=== PATIENT | female | born 1965 | race Caucasian/White ===

== ENCOUNTER 2021-01-30 13:23 | Inpatient (IN) | payer MEDICARE, SELFPAY ==
--- NOTE | ~2021-01-30 | US_ITS ---
EXAMINATION: US abdomen limited DATE: 01/30/2021 16:34 INDICATION: Right upper quadrant pain TECHNIQUE: Multiple grayscale and Doppler ultrasound images of the abdomen were obtained. COMPARISON: 10/18/2013 FINDINGS: The head and body of the pancreas are normal. The pancreatic tail is obscured by bowel gas. The liver is normal with normal echogenicity and echotexture. No surface nodularity. Normal hepatope florencia flow in the main portal vein. The gallbladder is normal with no abnormal wall thickening, pericho lecystic fluid or stones. The normal common bile duct measures 2 mm. There was no sonographic Coughlin sign. IMPRESSION: 1. Normal sonographic study of the gallbladder. Reviewed, dictated and finalized at location A.
--- NOTE | ~2021-01-30 | CT_ITS ---
EXAMINATION: CT abdomen pelvis w con DATE: 01/30/2021 17:11 INDICATION: Upper abdominal pain. Vomiting. TECHNIQUE: Computed tomography (CT) of the abdomen and pelvis was performed with 100 mL Omnipaque 350 intravenous contrast. Automated exposure control and iterative reconstruction technique were employe d. The dose-length product was 242.42 mGy-cm. COMPARISON: CT abdomen and pelvis 10/16/2013 FINDINGS: The visualized portions of the lung bases demonstrate mild atelectasis. No pleural effusion . The heart size is normal. No pericardial effusion. The liver, gallbladder, spleen, pancreas, adrena l glands, and left kidney are normal. There are cysts in right kidney measuring up to 7 mm. There are multiple fibroids in the uterus measuring up to 4.8 cm. There are no dilated loops of bowel. The jose f endix is not visualized. There are no pathologically enlarged lymph nodes. There is physiologic fluid in the pelvis. There is mild thoracic and lumbar spondylosis. IMPRESSION: 1. Uterine fibroids. Reviewed, dictated and finalized at location A. IMPRESSION: 1. Uterine fibroids.
--- NOTE | ~2021-01-30 | NM_ITS ---
EXAMINATION: NM parathyroid w imaging DATE: 02/02/2021 13:45 INDICATION: Hyperparathyroidism. TECHNIQUE: 20.5 mCi Tc99m sestamibi was administered intravenously. Anterior images of the neck were obtained immediately and at 2 hours. COMPARISON: Chest CT 03/22/2016 FINDINGS: There is no focus of persistent activity in the area of the thyroid or mediastinum to sugge st parathyroid adenoma. IMPRESSION: 1. No specific evidence of a parathyroid adenoma. Reviewed, dictated and finalized at location A.
[2021-01-30 13:29] VITALS: BP 151/84; PULSE 121; RESP 20; TEMP 37.5; O2SAT 100
--- NOTE | 2021-01-30 13:50 | ECG_ITS ---
Measurements Intervals [place] Rate: 99 P: 57 [place]: 143 QRS: 25 QRSD: 90 T: 28 QT: 329 QTc: 424 Interpretive Statements SINUS RHYTHM POSSIBLE LEFT ATRIAL ENLARGEMENT BORDERLINE ST-T WAVE ABNORMALITY- INF/LAT LEADS BORDERLINE ECG Electronically Signed On 01-30-2021 14:34:17 CDT by Yannick Garcia D.O.
--- NOTE | 2021-01-30 13:54 | ED.ABDPAIN ---
HPI - Abdominal Pain General Chief Complaint: Abdominal Pain Stated Complaint: nausea, vomiting Time Seen by Provider: 01/30/21 13:35 Source: patient and RN notes reviewed Mode of arrival: ambulatory Limitations: no limitations History of Present Illness HPI narrative: This is a 55 year old female with history of IBS- C, opioid dependence, EDS who presents for evaluation of epigastric pain with nausea and vomiting. She was admitted to [place] 2 weeks ago for constipation and uterine fibroids. She states she was started on Protonix and Linzess for her constipation. She was also given 1 dose of a medication for opioid induced constipation. She reports the 1 time dose medication caused her to have epigastric abdominal pain with nausea and vomiting with explosive diarrhea. Her diarrhea has resolved and she is having normal formed daily bowel movements. She has continued to have constant epigastric pain for 2 weeks. She is intermittent nausea and vomiting despite taking Zofran every 4 to 6 hours as needed. She denies fever or chills. Related Data Home Medications Medication Instructions Recorded Confirmed acetaminophen 500 mg PO Q6H PRN 01/30/21 01/30/21 alum-mag hydroxide-simeth [Mylanta] 10 ml PO Q6H PRN 01/30/21 01/30/21 fentanyl 1 patch TRANSDERMAL Q48H 01/30/21 01/30/21 fluticasone propionate [Allergy 2 spray INTRANASAL DAILY 01/30/21 01/30/21 Relief (fluticasone)] levothyroxine 112 mcg PO DAILY 01/30/21 01/30/21 linaclotide [Linzess] 145 mcg PO DAILY 01/30/21 01/30/21 ondansetron 4 mg PO Q4-6H PRN 01/30/21 01/30/21 oxycodone 5 mg PO Q4-6H 01/30/21 01/30/21 pantoprazole 40 mg PO BID 01/30/21 01/30/21 sennosides 8.6 mg PO BID 01/30/21 01/30/21 simethicone 80 mg PO Q4-6H PRN 01/30/21 01/30/21 Allergies Allergy/AdvReac Type Severity Reaction Status Date / Time levofloxacin Allergy Severe NECK Verified 01/30/21 22:45 SWELLING/ELEVATED LIVER ENZYMES pregabalin Allergy Severe BLURRED Verified 01/30/21 22:45 VISION, GARBLED SPEECH vancomycin Allergy Severe REDMANS Verified 01/30/21 22:45 SYNDROME ciprofloxacin Allergy Intermediate HIVES Verified 01/30/21 22:45 clarithromycin Allergy Mild RASH Verified 01/30/21 22:45 Corticosteroids Allergy Unknown Unknown Verified 01/30/21 22:45 (Glucocorticoids) levothyroxine sodium Allergy Unknown GENERIC Verified 01/30/21 22:45 SYNTHROID* USE BRAND NAME ONLY topiramate Allergy Unknown Unknown Verified 01/30/21 22:45 apixaban AdvReac Severe INEFFECTIVE Verified 01/30/21 22:45 warfarin AdvReac Severe HEADACHE Verified 01/30/21 22:45 ANTICHOLINERGICS Allergy Severe SHUTS DOWN Uncoded 11/04/17 06:49 SALIVARY GLANDS ANTIHISTAMINES Allergy Severe SHUTS DOWN Uncoded 11/04/17 06:49 SALIVARY GLANDS intrathecal prednisone AdvReac Severe Swelling Uncoded 04/14/16 18:50 Review of Systems Review of Systems: All systems reviewed & are unremarkable except as noted in HPI and below PMFSH Past Medical History Medical History (Updated 01/31/21 @ 00:11 by Lissette Drew MD) Chiari malformation Constipation EDS (Shanelle-Danlos syndrome) Surgical History Surgical History (Updated 01/30/21 @ 13:56 by Lissette Drew MD) H/O section History of appendectomy Social History Social History Smoking status: Never smoker Alcohol intake: never Substance use: never Spiritual care concerns: No Exam Const: General: no acute distress, alert and ill appearing Orientation/consciousness: patient oriented x3 HENMT: Mouth: Yes dry mucous membranes Eyes: EOM: EOMs intact bilaterally Chest: Chest palpation & inspection: normal inspection of the chest Resp: Effort & Inspection: normal respiratory effort and no retractions Auscultation: clear to auscultation bilaterally Cardio: Rate: regular rate Rhythm: regular rhythm Heart sounds: no murmurs GI: GI Palp: Yes Soft to palpation, No Ten
[2021-01-30] MEDS: LACTATED RINGERS 1,000 ML 999 ML IV CONT ×2 (14:10→19:17)
[2021-01-30] MEDS: PANTOPRAZOLE SODIUM IV 40 MG VIAL IV PUSH (14:10)
[2021-01-30] MEDS: ONDANSETRON INJ 4 MG/2 ML VIAL IV PUSH (14:11)
[2021-01-30 14:33] LABS: Basophils Percent Auto 0.2 % (0.2-1.2); Hematocrit 36.9 % (37.0-47.0); Hemoglobin 11.3 g/dL (12.0-15.0); Immature Granulocyte Absolute 0.01 K/mm3 (0.00-0.031); Immature Granulocyte Percent A 0.2 % (0-0.5); Lymphocytes Absolute Auto 1.41 K/mm3 (0.9-3.2); Mean Corpuscular HGB Conc 30.6 g/dl (32-36); Mean Corpuscular Hemoglobin 23.8 pg (26-34); Mean Corpuscular Volume 77.8 fl (80-100); Mean Platelet Volume 10.1 fl (7.4-10.4); Monocytes Absolute Auto 0.4 K/mm3 (0.1-0.6); Monocytes Percent Auto 5.9 % (2.6-8.5); Neutrophils Absolute Auto 4.4 K/mm3 (1.3-6.7); Neutrophils Percent Auto 70.7 % (45.5-73.1); Platelet Count Result 323 k/mm3 (150-375); Red Blood Count 4.74 M/mm3 (4.2-5.4); Red Cell Distribution Width 16.3 % (11.5-14.5); White Blood Count 6.1 K/mm3 (4.5-10.0)
[2021-01-30 15:08] LABS: Alanine Aminotransferase 18 U/L (4-35); Albumin Level 4.8 g/dL (3.5-5.1); Alkaline Phosphatase 66 U/L (38-126); Anion Gap 13 mmol/L (8-16); Aspartate Amino Transferase 33 U/L (14-36); Bilirubin,Total 0.5 mg/dL (0.2-1.3); Blood Urea Nitrogen 9 mg/dL (7-17); Calcium 10.8 mg/dL (8.4-10.2); Carbon Dioxide 21 mmol/L (22-30); Chloride 101 mmol/L (98-107); Estimated CRCL calculation 66 ml/min; Estimated Glomerular Filt Rate > 60; Glucose 151 mg/dL (65-110); Lipase 42 U/L (23-300); Potassium 3.9 mmol/L (3.4-5.0); Sodium 135 mmol/L (137-145)
[2021-01-30 15:31] LABS: Add Urine Microscopic? YES; Appearance Urine Clear (Clear); Bacteria Urine Trace /hpf; Bilirubin Urine Negative (Negative); Blood Urine 1+ (Negative); Color Urine Yellow (Yellow); Glucose Urine UA Negative (Negative); Ketones Urine Negative (Negative); Leukocyte Esterase Ur Negative LEU/UL (Negative); Mucus Urine Rare /lpf; Nitrate Urine Negative (Negative); Protein Urine Negative (Negative); RBC Urine 0-2 /hpf (0-2); Squamous Epithelial Cell Urine Rare /hpf (Few); Urobilinogen Urine Negative mg/dL (<2.0); WBC Urine 0-3 /hpf
[2021-01-30 16:28] VITALS: BP 121/78; PULSE 89; RESP 18; O2SAT 100
[2021-01-30] MEDS: HYDROmorphone HCL INJ (*CRX) 1 MG/ML SYR IV PUSH (16:33)
[2021-01-30] MEDS: PROCHLORPERAZINE EDISYLATE 10 MG/2 ML VIAL IV PUSH (18:46)
[2021-01-30 18:48] VITALS: BP 106/78; PULSE 82; RESP 18; O2SAT 98
[2021-01-30] MEDS: MAG HYDROX/AL HYDROX/SIMETH 30 ML UDC PO (19:17)
[2021-01-30 20:45] VITALS: BP 131/71; PULSE 75; RESP 18; TEMP 36; O2SAT 98; BMI 23.7
--- NOTE | 2021-01-30 20:49 | PC.NURSE ---
Addendum entered by Bridgette Dodge RN 01/30/21 20:50: 20:45 arrival Original Note: This patient, September Piotr, was admitted to 3 [facility] Surg Room [id number]. Patient/family oriented to hospital policies and general routines including ID bracelet, bed and alarms, visiting hours, pain management, procedures, bathroom and other care routines, personal items, smoking policy, room service/diet, and visiting hours. Information on how to activate the Rapid Response Team has been discussed. Patient/Family are encouraged to report perceived risks to care and to ask questions if they do not understand what they are told or what they should do.
[2021-01-30 21:38] VITALS: BMI 23.5
--- NOTE | 2021-01-30 23:04 | PC.NURSE ---
pt started the admission out complaining about how poor the ED staff was at taking care of her.. she continued to complain all through her admission about this and that. She is refusing the NPO diet, she said the ER told her that she can have a visitor overnight, which I told her was inaccurate.. the spouse was okay with this but proceeded to bring her fast food. When I told her about her NPO diet she said ER said I could eat so I am going to eat .. she would not listen to what I was trying to explain. Will continue to follow up with her.. -KATHLEEN RN
[2021-01-31] MEDS: SODIUM CHLORIDE 0.9% IV 1,000 ML 125 ML IV CONT ×3 (00:52→16:39)
[2021-01-31] MEDS: ONDANSETRON INJ 4 MG/2 ML VIAL IV PUSH ×4 (01:07→16:40)
--- NOTE | 2021-01-31 05:01 | PM.IMHP ---
H&P: HPI History of Present Illness Date/Time: 01/31/21 05:01 Chief Complaint: EPIGASTRIC PAIN Narrative: THIS IS A 55-YEAR-OLD FEMALE WHO PRESENTED TO THE EMERGENCY ROOM DUE TO EPIGASTRIC PAIN WITH SOME NAUSEA AND VOMITING. PATIENT HAD BEEN AT [facility] 2 WEEKS AGO WHERE SHE WAS ADMITTED DUE TO CONSTIPATION THE PATIENT IS KNOWN TO BE ON CHRONIC OPIATES FOR MANY YEARS. AT [place] SHE WAS GIVEN A MEDICATION THAT MAY HER MOVE HER BOWELS AND NOW SHE STATES THAT SHE HAS HAD CONSTANT EPIGASTRIC PAIN EVER SINCE AND REQUEST TO BE ADMITTED FOR PAIN MANAGEMENT. SHE DENIES ANY FEVERS ANY RIGORS ANY CHILLS AT THE TIME OF MY VISIT SHE DENIED ANY DISCOMFORT BUT INSISTED TO PLACED BACK ON HER PAIN MEDICATION. PATIENT HAS BEEN PLACED IN OBSERVATION FOR FURTHER ASSESSMENT AND MANAGEMENT. PRELIMINARY WORKUP HAS BEEN ESSENTIALLY NONREVEALING. CT OF ABDOMEN AND PELVIS REVEALED UTERINE FIBROID AND RIGHT UPPER QUADRANT ULTRASOUND WAS WITHIN NORMAL LIMITS. Review of Systems Review of Systems: EPIGASTRIC PAIN Constitutional: Constitutional: Denies chills, Denies fever(s) and Denies malaise Eyes: Eyes: Denies change in vision ENT: Denies dysphagia, Denies nasal obstruction and Denies odynophagia Cardiovascular: Cardiovascular: Denies pedal edema, Denies radiating jaw, neck or arm pain, Denies palpitations and Denies dyspnea on exertion Respiratory: Respiratory: Denies cough Gastrointestinal: Gastrointestinal: Reports abdominal pain, Reports nausea and Reports vomiting Genitourinary: Genitourinary: Reports no additional female genitourinary complaints Musculoskeletal: Comments: CHRONIC PAIN IN MULTIPLE LOCATIONS Integumentary/Breasts: Skin/Breast: Reports system reviewed and no additional complaints, except as docu Neurologic: Denies focal weakness and Denies Sensory deficit (Neuro) Psychiatric: Psychiatric: Reports no additional psychiatric complaints Endocrine: Endocrine: Reports no additional endocrine complaints Hematologic/Lymphatic: Hematologic/Lymphatic: Reports no additional hematologic/lymphatic complaints Allergic/Immunologic: Allergic/Immunologic: Reports no additional allergic/immunologic complaints [facility] Past Medical History Medical History (Updated 01/31/21 @ 05:08 by Bjorn Ley MD) Chiari malformation Constipation EDS (Shanelle-Danlos syndrome) Surgical History Surgical History (Updated 01/30/21 @ 13:56 by Lissette Drew MD) H/O section History of appendectomy Social History Social History Smoking status: Never smoker Alcohol intake: never Substance use: never Spiritual care concerns: No Meds Home Medications and Allergies Home Medications Medication Instructions Recorded Confirmed Type acetaminophen 500 mg PO Q6H PRN 01/30/21 01/30/21 History alum-mag hydroxide-simeth [Mylanta] 10 ml PO Q6H PRN 01/30/21 01/30/21 History fentanyl 1 patch TRANSDERMAL Q48H 01/30/21 01/30/21 History fluticasone propionate [Allergy 2 spray INTRANASAL DAILY 01/30/21 01/30/21 History Relief (fluticasone)] levothyroxine 112 mcg PO DAILY 01/30/21 01/30/21 History linaclotide [Linzess] 145 mcg PO DAILY 01/30/21 01/30/21 History ondansetron 4 mg PO Q4-6H PRN 01/30/21 01/30/21 History oxycodone 5 mg PO Q4-6H 01/30/21 01/30/21 History pantoprazole 40 mg PO BID 01/30/21 01/30/21 History sennosides 8.6 mg PO BID 01/30/21 01/30/21 History simethicone 80 mg PO Q4-6H PRN 01/30/21 01/30/21 History Allergies Allergy/AdvReac Type Severity Reaction Status Date / Time levofloxacin Allergy Severe NECK Verified 01/30/21 22:45 SWELLING/ELEVATED LIVER ENZYMES pregabalin Allergy Severe BLURRED Verified 01/30/21 22:45 VISION, GARBLED SPEECH vancomycin Allergy Severe REDMANS Verified 01/30/21 22:45 SYNDROME ciprofloxacin Allergy Intermediate HIVES Verified 01/30/21 22:45 clarithromycin Allergy Mild RASH Verified 01/30/21 22:45 Corticosteroids Allergy Unknown Unknown V
--- NOTE | 2021-01-31 05:56 | PHAR ---
PHARMACY VERIFIED LINACLOTIDE 145 mcg capsule TAKE 1 CAPSULE BY MOUTH 30 MINUTES BEFORE THE FIRST MEAL OF THE DAY
[2021-01-31 06:00] VITALS: BP 126/55; PULSE 78; RESP 18; TEMP 36.2; O2SAT 95
[2021-01-31] MEDS: oxyCODONE HCL (*CRX) 5 MG TAB IR PO ×3 (06:05→22:10)
[2021-01-31 07:34] LABS: Basophils Percent Auto 0.2 % (0.2-1.2); Eosinophils Percent Auto 0.2 % (0-4.4); Hematocrit 32.5 % (37.0-47.0); Hemoglobin 9.8 g/dL (12.0-15.0); Immature Granulocyte Absolute 0.02 K/mm3 (0.00-0.031); Immature Granulocyte Percent A 0.5 % (0-0.5); Lymphocytes Percent Auto 47.5 % (18.3-44.2); Mean Corpuscular HGB Conc 30.2 g/dl (32-36); Mean Corpuscular Hemoglobin 23.5 pg (26-34); Mean Corpuscular Volume 77.9 fl (80-100); Mean Platelet Volume 9.9 fl (7.4-10.4); Monocytes Absolute Auto 0.4 K/mm3 (0.1-0.6); Monocytes Percent Auto 8.4 % (2.6-8.5); Neutrophils Absolute Auto 1.9 K/mm3 (1.3-6.7); Neutrophils Percent Auto 43.2 % (45.5-73.1); Platelet Count Result 285 k/mm3 (150-375); Red Blood Count 4.17 M/mm3 (4.2-5.4); Red Cell Distribution Width 16.3 % (11.5-14.5); White Blood Count 4.4 K/mm3 (4.5-10.0)
[2021-01-31 07:37] LABS: Alanine Aminotransferase 12 U/L (4-35); Alkaline Phosphatase 67 U/L (38-126); Anion Gap 6 mmol/L (8-16); Aspartate Amino Transferase 21 U/L (14-36); Bilirubin,Total 0.6 mg/dL (0.2-1.3); Blood Urea Nitrogen 7 mg/dL (7-17); Calcium 10.4 mg/dL (8.4-10.2); Carbon Dioxide 24 mmol/L (22-30); Chloride 109 mmol/L (98-107); Estimated CRCL calculation 66 ml/min; Estimated Glomerular Filt Rate > 60; Glucose 97 mg/dL (65-110); Potassium 3.6 mmol/L (3.4-5.0); Sodium 139 mmol/L (137-145)
[2021-01-31 10:17] VITALS: O2SAT 96
[2021-01-31] MEDS: ACETAMINOPHEN 500 MG TABLET PO ×2 (10:45→16:38)
[2021-01-31] MEDS: SENNOSIDES 8.6 MG TABLET PO ×2 (10:47→19:17)
[2021-01-31] MEDS: PANTOPRAZOLE 40 MG TABLET PO (10:48)
--- NOTE | 2021-01-31 13:16 | PM.IMPN ---
Progress Note: A&P Assessment and Plan (1) Acute dehydration: Code(s): E86.0 - Dehydration Status: Acute Assessment and Plan: IV FLUIDS SUPPORTIVE CARE (2) Intractable nausea and vomiting: Code(s): R11.2 - Nausea with vomiting, unspecified Status: Acute Assessment and Plan: SUPPORTIVE CARE IV Zofran Ppi CT abdomen negative for any abnormality except for multiple fibroids (3) Epigastric abdominal pain: Code(s): R10.13 - Epigastric pain Status: Acute Assessment and Plan: PPI NEEDED (4) Opiate dependence: Code(s): F11.20 - Opioid dependence, uncomplicated Status: Acute Assessment and Plan: FOLLOW-UP IN OUTPATIENT SETTING She follows up with management specialist and has been on chronic opiates (5) Hypercalcemia: Code(s): E83.52 - Hypercalcemia Status: Acute Assessment and Plan: With ongoing abdominal pain nausea vomiting will check PTH level to rule out hyperparathyroidism (6) Celiac disease: Code(s): K90.0 - Celiac disease Status: Acute Assessment and Plan: EGD from 2013 with celiac histology will check celiac level I could not find 1 from the past Subjective Date/time seen: 01/31/21 13:16 Interval history: Reports epigastric pain, which has been ongoing for for past several days. Nausea and vomiting. This started since she went to [place] and was given Movantik which was followed by several episodes of nausea vomiting and diarrhea. She is admitted will for abdominal pain and dehydration. Reports history of Shnaelle-Danlos syndrome hypothyroidism chronic pain pain on pain medication for several years. EGD done in 2013 noted with celiac histology. She has been on gluten free diet since then Review of Systems Review of Systems: - CONSTITUTIONAL: Denies weight loss, fever and chills. - HEENT: Denies changes in vision and hearing - RESPIRATORY: Denies SOB and cough. - CV: Denies palpitations and CP. - GI: Reports abdominal pain, nausea, vomiting and denies diarrhea. - : Denies dysuria and urinary frequency. - MSK: Denies myalgia and joint pain. - SKIN: Denies rash and pruritus. - NEUROLOGICAL: Denies headache and syncope. - PSYCHIATRIC: Denies recent changes in mood. Denies anxiety and depression. All systems reviewed & are unremarkable except as noted in HPI and below Exam Narrative: GENERAL: The patient is well developed, not in acute distress HEENT: Nonicteric sclerae, PERRLA, EOMI. Oropharynx clear. Moist mucous membranes. Conjunctivae appear well perfused. CHEST: Chest wall is nontender. HEART: Regular rate and rhythm without murmur, rubs, or gallops LUNGS: Clear to auscultation bilaterally. no respiratory distress ABDOMEN: Soft, positive bowel sounds, tender epigastric region, no organomegaly. SKIN: No rash, no excessive bruising, petechiae, or purpura. NEUROLOGIC: Cranial nerves II-XII intact, alert and oriented x 3, no gross motor deficits EXTREMITIES: no edema, cyanosis or clubbing Objective Data Vital Signs Vital Signs: Vital Signs - 24 hr 01/30/21 13:29 01/30/21 16:28 01/30/21 18:48 Temperature 99.5 F Pulse Rate 121 H 89 82 Respiratory Rate 20 18 18 Blood Pressure 151/84 H 121/78 106/78 Pulse Oximetry 100 100 98 01/30/21 20:45 01/31/21 06:00 01/31/21 10:17 Temperature 96.8 F L 97.1 F L Pulse Rate 75 78 Respiratory Rate 18 18 Blood Pressure 131/71 126/55 L Pulse Oximetry 98 95 96 Intake/Output Intake/Output: Intake & Output 01/28/21 01/29/21 01/30/21 01/31/21 23:59 23:59 23:59 23:59 Intake Total 1000 1500 Balance 1000 1500 Meds/Results Medications: Active Medications Generic Name Dose Route Start Last Admin Trade Name Freq PRN Reason Stop Dose Admin Acetaminophen 500 mg 01/31/21 05:09 01/31/21 10:45 Acetaminophen 500 Mg Tablet PO 500 mg Q6H PRN Administration Pain Rated 1-3 Al Hydrox/Mg Hydrox/Simethicone
[2021-01-31] MEDS: LEVOTHYROXINE SODIUM 112 MCG TABLET PO (13:52)
[2021-01-31 14:00] VITALS: BP 124/58; PULSE 84; RESP 12; TEMP 36.7; O2SAT 100
[2021-01-31 14:49] LABS: Parathyroid Intact 140.7 pg/mL (7.5-53.5)
--- NOTE | 2021-01-31 16:14 | WPDGICN ---
Assessment and Plan Assessment and plan (1) Epigastric abdominal pain: Code(s): R10.13 - Epigastric pain Status: Acute Assessment and Plan: GI Consultation by Kenneth Westbrook NP for Dr. Lozoya 01/31/21September Piotr is a 55 year old female with PMH appendectomy, Shanelle-Danlos syndrome, Chiari malformation, uterine fibroids, c section x2, exploratory lap x2, chronic pain with opioid use and hx of IBS-C. She is asked to be seen at the request of the hospitalist for epigastric pain, nausea, and vomiting. 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 She was hospitalized at [place] 2 weeks ago for constipation and she was prescribed Movantik for opioid induced constipation and Bentyl. She states as soon as she took first dose of Movantik vomiting and severe diarrhea. She now complains of epigastric abdominal pain that is sharp and radiates mid scapula. Pain has no correlation with BM or oral intake and states standing makes pain more problematic. Complains of nausea and dry heaves today but no vomiting. Last BM was yesterday and was formed but used Glycerin suppository with addition to her Linzess 145 mcg daily and Senna BID. Complains of 100 lb weight loss since March, secondary to self restricted diet with decreased appetite. She only has medication r/t diarrhea. She feels like she has tenesmus and rectal pressure when she believes she is constipated. PPI recently increased to BID two weeks ago. Denies pyrosis or regurgitation. Patient denies trouble swallowing, bloating, early satiety, heartburn, rectal bleeding or melena. Patient denies fever, jaundice, scleral icterus, dark urine, light stool, itching, hot or cold intolerance, chest pain, shortness of breath at rest, hematuria, dysuria, new cough or visual changes, easy bruising, tingling of the skin, bone pain or tremors. Allergies: See list Medications:see list Social history: nonsmoker, nondrinker. with two children. Family history: negative for GI malignancy. She has never had a colonoscopy. [place] [address] Alvarez. Negative Cologuard 03/2020 Physical exam: No lower extremity edema, jaundice, spider angioma, palmar erythema. Skull is normocephalic atraumatic. Sclera are non-icteric. Oropharynx is clear. Neck is supple without thyromegaly. Lungs are clear. Heart is rate and rhythm regular. S1 and S2 normal. Normal active bowel sounds. Non-tender, non-rigid, non-distended without hepatosplenomegaly or masses. No guarding. Rectal is deferred. Neuro is conscious and alert ?3. Labs: LFT and Lipase normal wbc 4, hgb 10, hct 36, MCV 78, platelets 285 celiac labs pending Imaging: CT abd/pelvis with contrast showed uterine fibroid with no acute pathology RUQ US: Unremarkable Assessment and plan: A. Epigastric Abdominal Pain/Nausea/Vomiting/Appetite Loss/Weight Loss -Differentials include acid vs. non acid vs. gastritis vs. pud vs. motility disorder vs. gallbladder dysfunction vs. functional and weight loss is most likely secondary to her restrictive diet -Intermittent nausea controlled with Zofran PRN -Epigastric pain and nausea improving but no resolved. -Dry heaves this AM -tolerating clear liquids -On protonix 40 mg BID and will add Carafate 1 g ac/hs -CT abd/pelvis no acute pathology -RUQ unremarkable -lipase normal -LFT normal -Consider adding Reglan 10 mg AC/HS if no improvement -Consider EGD and HIDA outpatient -She admits to less than 1000 calories per day -Advance diet as tolerated B. Alternating bowel habits/Rectal Pressure/Tenesmus: -medication induced vs. neurological vs. pelvic floor dysfunction vs. large uterine fibroid vs. functional -diarrhea is usually medication induced -currently well controlled on Linzess 145 mcg and Senna BID -Did not tolerate Movantik and Miralax as caused severe diarrhea -Last BM was yesterday -pending surgical evaluation for uterine fibroid as outpatient -consider anorectal manometry outpatient if needed
[2021-01-31 17:17] LABS: Iron 29 ug/dL (37-170)
[2021-01-31 17:27] LABS: Percent Iron Saturation 6 % (20-50)
[2021-01-31 17:54] LABS: Ferritin 5.38 ng/mL (11.1-264)
[2021-01-31 18:21] LABS: Folic Acid 16.9 ng/mL (2.76->20)
[2021-01-31] MEDS: PANTOPRAZOLE SODIUM IV 40 MG VIAL IV PUSH (21:33)
[2021-01-31] MEDS: SUCRALFATE SUSP 100 MG/ML 10 ML UDC 1000 MG PO (21:33)
[2021-01-31 22:00] VITALS: BP 111/46; PULSE 65; RESP 20; TEMP 36.9; O2SAT 100
[2021-02-01] MEDS: ACETAMINOPHEN 500 MG TABLET PO ×3 (00:50→18:10)
[2021-02-01] MEDS: SODIUM CHLORIDE 0.9% IV 1,000 ML 125 ML IV CONT ×3 (00:51→20:55)
[2021-02-01] MEDS: ONDANSETRON INJ 4 MG/2 ML VIAL IV PUSH ×2 (03:10→20:35)
[2021-02-01] MEDS: MAG HYDROX/AL HYDROX/SIMETH 30 ML UDC 10 ML PO (03:15)
[2021-02-01] MEDS: oxyCODONE HCL (*CRX) 5 MG TAB IR PO ×3 (05:50→20:34)
[2021-02-01 06:00] VITALS: BP 125/60; PULSE 69; RESP 20; TEMP 36.3; O2SAT 100
[2021-02-01] MEDS: LEVOTHYROXINE SODIUM 112 MCG TABLET PO (07:27)
[2021-02-01] MEDS: SUCRALFATE SUSP 100 MG/ML 10 ML UDC 1000 MG PO ×4 (07:27→20:35)
[2021-02-01 07:42] LABS: Basophils Percent Auto 0.3 % (0.2-1.2); Eosinophils Percent Auto 0.3 % (0-4.4); Hematocrit 31.7 % (37.0-47.0); Hemoglobin 9.4 g/dL (12.0-15.0); Immature Granulocyte Absolute 0.01 K/mm3 (0.00-0.031); Immature Granulocyte Percent A 0.3 % (0-0.5); Lymphocytes Absolute Auto 1.85 K/mm3 (0.9-3.2); Lymphocytes Percent Auto 49.3 % (18.3-44.2); Mean Corpuscular HGB Conc 29.7 g/dl (32-36); Mean Corpuscular Hemoglobin 23.7 pg (26-34); Mean Corpuscular Volume 80.1 fl (80-100); Mean Platelet Volume 9.8 fl (7.4-10.4); Monocytes Absolute Auto 0.3 K/mm3 (0.1-0.6); Monocytes Percent Auto 8.8 % (2.6-8.5); Neutrophils Absolute Auto 1.5 K/mm3 (1.3-6.7); Platelet Count Result 260 k/mm3 (150-375); Red Blood Count 3.96 M/mm3 (4.2-5.4); Red Cell Distribution Width 16.4 % (11.5-14.5); White Blood Count 3.8 K/mm3 (4.5-10.0)
[2021-02-01 07:56] LABS: Alanine Aminotransferase 11 U/L (4-35); Albumin Level 3.7 g/dL (3.5-5.1); Alkaline Phosphatase 64 U/L (38-126); Anion Gap 6 mmol/L (8-16); Aspartate Amino Transferase 19 U/L (14-36); Bilirubin,Total 0.4 mg/dL (0.2-1.3); Blood Urea Nitrogen 4 mg/dL (7-17); Calcium 9.8 mg/dL (8.4-10.2); Carbon Dioxide 24 mmol/L (22-30); Chloride 106 mmol/L (98-107); Estimated CRCL calculation 66 ml/min; Estimated Glomerular Filt Rate > 60; Glucose 92 mg/dL (65-110); Potassium 3.6 mmol/L (3.4-5.0); Sodium 136 mmol/L (137-145)
[2021-02-01] MEDS: SENNOSIDES 8.6 MG TABLET PO ×2 (08:46→17:59)
[2021-02-01] MEDS: PANTOPRAZOLE SODIUM IV 40 MG VIAL IV PUSH ×2 (08:46→20:35)
[2021-02-01 10:16] LABS: Vitamin D 25 Hydroxy 38.4 ng/mL
--- NOTE | 2021-02-01 12:27 | WPDGIPROGNO ---
Progress Note: A&P Assessment and Plan (1) Intractable nausea and vomiting: Code(s): R11.2 - Nausea with vomiting, unspecified <Nancy Westbrook APRN - Last Filed: 02/01/21 12:37> Status: Acute <Nancy Westbrook APRN - Last Filed: 02/01/21 12:37> Assessment and Plan: GI Progress Note Kenneth Westbrook [employer] for Dr. Lozoya 02/01/21 S: Doing well last night and tolerating clear liquids with no abdominal pain. Had episode around 2 am of epigastric pain that was sharp with radiation inbetween scapula. Attempted ice cream this morning and had dry heaves but no vomiting. Still having some epigastric pain but improving. Last BM this AM and soft/formed with no melena or hematochezia. She states she use to be on Reglan 2.5 mg BID and had great results with that. O: Hgb 9.4, HCT 31.7, MCV 80, iron 29, iron sat 6%, TIBC 451, ferritin 5, b12 698, folate 16.9 GES in 2013 was normal EGD 2014 showed normal duodenum but bx showed chronic inflammation that could be compatible with gluten intolerance Abd SNT with positive bowel sounds. No LE edema noted. Assessment and plan: A. Epigastric Abdominal Pain/Nausea/Vomiting/Appetite Loss/Weight Loss -Differentials include acid vs. non acid vs. gastritis vs. pud vs. motility disorder vs. gallbladder dysfunction vs. functional and weight loss is most likely secondary to her restrictive diet -Intermittent nausea controlled with Zofran PRN -Epigastric pain and nausea improving but not resolved. -Dry heaves this AM -tolerating clear liquids -On protonix 40 mg BID and added Carafate 1 g ac/hs -CT abd/pelvis no acute pathology -RUQ unremarkable -lipase normal -LFT normal -Will add Reglan 5 mg IV AC/HS -Consider EGD if pain worsens or fails to improve -Advance diet as tolerated B. Alternating bowel habits/Rectal Pressure/Tenesmus: -medication induced vs. pelvic floor dysfunction vs. large uterine fibroid vs. functional -diarrhea is usually medication induced -currently well controlled on Linzess 145 mcg and Senna BID -Did not tolerate Movantik and Miralax as caused severe diarrhea -Last BM was today and soft and formed -pending surgical evaluation for uterine fibroid as outpatient -needs colonoscopy outpatient as she has never had one, she doesn't think she can tolerate prep at this time -She will follow with gastroenterology at [facility]. 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 GI vs. Nutrition -iron 29, ferritin 5, iron sat 6%, TIBC 451 with normal b12 and folate -recommend IV venofer x 3 doses -no evidence of GI bleeding -will check iron panel, ferritin, b12 and folate -EGD in 2013 she had normal duodedum but bx showed chronic inflammation possible gluten sensitivity -celiac panel is pending per hospitalist but she has been on semi gluten free diet for 9 months. -She will need an EGD and Colonoscopy at some time Thank you very much for allowing me to share in the care of your patient. Discussed with Dr. Lozoya <Nancy Westbrook APRN - Last Filed: 02/01/21 12:37> Additional Plan I have personally seen and examined this patient and agree with the above assessment and plan. Abdominal exam soft/NT A/P As above. Thank you, Lalit Lozoya MD [phone] <Lalit Lzooya MD - Last Filed: 02/01/21 12:52> Subjective Date/time seen: 02/01/21 12:27 <Nancy Westbrook APRN - Last Filed: 02/01/21 12:37> Objective Data Vital Signs Vital Signs: Vital Signs - 24 hr 01/31/21 14:00 01/31/21 22:00 02/01/21 06:00 Temperature 36.7 C 36.9 C 36.3 C L Pulse Rate 84 65 69 Respiratory Rate 12 20 20 Blood Pressure 124/58 L 111/46 L 125/60 Pulse Oximetry 100 100 100 <Nancy Westbrook APRN - Last Filed: 02/01/21 12:37> Intake/Output Intake/Output: Intake & Output 01/29/21 01/30/21 01/31/21 02/01/21 23:59 23:59 23:59 23:59 Intake Total 1000 3190 2350 Balance 1000 3190 2350 <RUSTY Judd
[2021-02-01] MEDS: METOCLOPRAMIDE HCL INJ 10 MG/2 ML VIAL 5 MG IV PUSH ×2 (13:44→18:01)
[2021-02-01] MEDS: IRON SUCROSE COMPLEX 100 MG in SODIUM CHLORIDE 0.9% IV 50 ML 220 MG IVPB (13:44)
--- NOTE | 2021-02-01 14:30 | PM.IMPN ---
Progress Note: A&P Assessment and Plan (1) Intractable nausea and vomiting: Code(s): R11.2 - Nausea with vomiting, unspecified Status: Acute Assessment and Plan: Patient is doing well but did have vomiting overnight. So far she has tolerated her low-fiber diet -continue PPI and Carafate -suspect she may have gastritis or gastric ulcer, especially with the iron deficiency anemia -would recommend EGD either inpatient or outpatient depending on GI recommendation. Will keep NPO at midnight just in case (2) Acute dehydration: Code(s): E86.0 - Dehydration Status: Acute Assessment and Plan: Resolved -likely caused her calcium to be high (3) Epigastric abdominal pain: Code(s): R10.13 - Epigastric pain Status: Acute Assessment and Plan: As above, continue PPI (4) Opiate dependence: Code(s): F11.20 - Opioid dependence, uncomplicated Status: Acute Assessment and Plan: Chronic, continue home medications -She follows up with payroll tax specialist and has been on chronic opiates (5) Hypercalcemia: Code(s): E83.52 - Hypercalcemia Status: Acute Assessment and Plan: -likely due to dehydration since the calcium is now normal -PTH high, vitamin D normal -parathyroid scan scheduled for tomorrow (6) Celiac disease: Code(s): K90.0 - Celiac disease Status: Acute Assessment and Plan: Found on EGD from 2013 (7) DAVE (iron deficiency anemia): Code(s): D50.9 - Iron deficiency anemia, unspecified Status: Acute Assessment and Plan: Pt admits to heavy menstrual and could be due to fibroids -would check stool occult blood, may need colonoscopy -pt had negative cologuard last march but has never had a colonoscopy -will do IV venofer while here Time Spent With Patient Time with patient: 25 - 35 minutes Subjective Date/time seen: 02/01/21 14:30 Interval history: Pt is a 55-year-old female here for nausea vomiting. Patient states she had a full liquid diet yesterday and was feeling much better than she was on admission but then woke up at 3:00 a.m. and was vomiting with epigastric pain. She continues to have epigastric pain but was able to tolerate a low-fiber diet today and so far has not thrown up. She has not any diarrhea or blood in her stool. She states that she has never had a colonoscopy but she had a Cologuard last year that was okay. She has never had a history of ulcer. She admits to having heavy periods. Review of Systems Review of Systems: All systems reviewed & are unremarkable except as noted in HPI and below Exam Narrative: General: Well developed well nourished patient in NAD HEENT: normocephalic Neck: supple Neuro: Alert and oriented x4 CV:RRR Resp:CTA Abd: Soft, non distended. Pain to palpation to the epigastric area. Positive bowel sounds Extremities: No swelling, erythema, or pain to palpation. Objective Data Vital Signs Vital Signs: Vital Signs - 24 hr 01/31/21 22:00 02/01/21 06:00 Temperature 98.4 F 97.4 F L Pulse Rate 65 69 Respiratory Rate 20 20 Blood Pressure 111/46 L 125/60 Pulse Oximetry 100 100 Intake/Output Intake/Output: Intake & Output 01/29/21 01/30/21 01/31/21 02/01/21 23:59 23:59 23:59 23:59 Intake Total 1000 3190 2350 Balance 1000 3190 2350 Meds/Results Medications: Active Medications Generic Name Dose Route Start Last Admin Trade Name Freq PRN Reason Stop Dose Admin Acetaminophen 500 mg 01/31/21 05:09 02/01/21 08:59 Acetaminophen 500 Mg Tablet PO 500 mg Q6H PRN Administration Pain Rated 1-5 Al Hydrox/Mg Hydrox/Simethicone 10 ml 01/31/21 05:09 02/01/21 03:15 Mag Hydrox/Al Hydrox/Simeth 30 Ml Udc PO 10 ml Q6H PRN Administration Abdominal Discomfort Fentanyl 100 mcg 02/01/21 21:00 Fentanyl (*Crx) 100 Mcg Patch TRANSDERM Q48H LUL Fluticasone P
[2021-02-01 15:15] VITALS: BP 127/57; PULSE 129; RESP 12; TEMP 36.8; O2SAT 100
[2021-02-01 22:00] VITALS: BP 125/71; PULSE 60; RESP 18; TEMP 36.1; O2SAT 98
[2021-02-02] MEDS: ACETAMINOPHEN 500 MG TABLET PO ×3 (00:07→18:23)
[2021-02-02] MEDS: oxyCODONE HCL (*CRX) 5 MG TAB IR PO ×4 (02:17→22:42)
[2021-02-02] MEDS: ONDANSETRON INJ 4 MG/2 ML VIAL IV PUSH ×4 (02:20→21:16)
[2021-02-02] MEDS: SODIUM CHLORIDE 0.9% IV 1,000 ML 125 ML IV CONT ×3 (05:45→22:46)
[2021-02-02 06:00] VITALS: BP 139/66; PULSE 86; RESP 18; TEMP 36.9; O2SAT 97
[2021-02-02 06:48] LABS: Hematocrit 29.9 % (37.0-47.0); Hemoglobin 9.3 g/dL (12.0-15.0); Mean Corpuscular HGB Conc 31.1 g/dl (32-36); Mean Corpuscular Volume 77.1 fl (80-100); Platelet Count Result 268 k/mm3 (150-375); Red Blood Count 3.88 M/mm3 (4.2-5.4); Red Cell Distribution Width 16.1 % (11.5-14.5); White Blood Count 4.5 K/mm3 (4.5-10.0)
[2021-02-02 07:01] LABS: Anion Gap 9 mmol/L (8-16); Blood Urea Nitrogen 4 mg/dL (7-17); Calcium 10.3 mg/dL (8.4-10.2); Carbon Dioxide 23 mmol/L (22-30); Chloride 104 mmol/L (98-107); Estimated CRCL calculation 66 ml/min; Estimated Glomerular Filt Rate > 60; Glucose 98 mg/dL (65-110); Potassium 3.6 mmol/L (3.4-5.0); Sodium 136 mmol/L (137-145)
[2021-02-02] MEDS: SUCRALFATE SUSP 100 MG/ML 10 ML UDC 1000 MG PO ×4 (07:44→21:06)
[2021-02-02] MEDS: LEVOTHYROXINE SODIUM 112 MCG TABLET PO (07:44)
[2021-02-02] MEDS: IRON SUCROSE COMPLEX 100 MG in SODIUM CHLORIDE 0.9% IV 50 ML 220 MG IVPB (08:57)
[2021-02-02] MEDS: FLUTICASONE PROPIONATE 0.05% NA SPR 16 GM BTL (*BKC) 2 SPRAY NASAL (08:57)
[2021-02-02] MEDS: SENNOSIDES 8.6 MG TABLET PO ×2 (08:58→18:24)
[2021-02-02] MEDS: PANTOPRAZOLE SODIUM IV 40 MG VIAL IV PUSH ×2 (08:58→21:08)
[2021-02-02 14:00] VITALS: BP 129/71; PULSE 70; RESP 14; TEMP 36.5; O2SAT 100
--- NOTE | 2021-02-02 15:13 | WPDGIPROGNO ---
Progress Note: A&P Assessment and Plan (1) DAVE (iron deficiency anemia): Code(s): D50.9 - Iron deficiency anemia, unspecified Status: Acute Assessment and Plan: will do EGD tomorrow (still with nausea) and epigastric pain, last egd years ago and apparently ? celiac she also states that has heavy periods and CT scan showed fibroids which could be part of her DAVE used reglan as needed but sometimes will have diarrheam, may need gastric emptying study if never had one. (2) Intractable nausea and vomiting: Code(s): R11.2 - Nausea with vomiting, unspecified Status: Acute Assessment and Plan: never had colonoscopy and will schedule as outpatient (she won't be able to tolerate bowel prep now) (3) Epigastric abdominal pain: Code(s): R10.13 - Epigastric pain Status: Acute Assessment and Plan: she takes mylanta prn (4) Fibroid uterus: Code(s): D25.9 - Leiomyoma of uterus, unspecified Status: Acute (5) Celiac disease: Code(s): K90.0 - Celiac disease Status: Acute (6) Alternating constipation and diarrhea: Code(s): R19.8 - Other specified symptoms and signs involving the digestive system and abdomen Status: Acute Assessment and Plan: she used linzess in the past Subjective Date/time seen: 02/02/21 15:13 Interval history: still some epigastric discomfort, yesterday had emesis. Review of Systems Review of Systems: All systems reviewed & are unremarkable except as noted in HPI and below Exam Const: General: comfortable and no acute distress HENMT: General nose exam: Normal nares present Eyes: Sclera: sclerae normal Neck: Neck: supple Resp: Auscultation: clear to auscultation bilaterally Cardio: Rate: regular rate GI: GI Palp: Yes Soft to palpation, Yes Tenderness to palpation present (GI) (mild ttp in epigastric, no rebound) and No Guarding due to palpation present (GI) Auscultation: normal bowel sounds Skin: General skin exam: normal color Neuro: Speech: normal speech Motor exam (neuro): Normal motor muscle tone present throughout Extrem: General: normal to inspection Psych: Affect: Anxious affect present Objective Data Vital Signs Vital Signs: Vital Signs - 24 hr 02/01/21 15:15 02/01/21 22:00 02/02/21 06:00 Temperature 98.3 F 96.9 F L 98.5 F Pulse Rate 129 H 60 86 Respiratory Rate 12 18 18 Blood Pressure 127/57 L 125/71 139/66 Pulse Oximetry 100 98 97 02/02/21 14:00 Temperature 97.7 F Pulse Rate 70 Respiratory Rate 14 Blood Pressure 129/71 Pulse Oximetry 100 Intake/Output Intake/Output: Intake & Output 01/30/21 01/31/21 02/01/21 02/02/21 23:59 23:59 23:59 23:59 Intake Total 1000 3190 4725 1200 Balance 1000 3190 4725 1200 Meds/Results Medications: Active Medications Generic Name Dose Route Start Last Admin Trade Name Freq PRN Reason Stop Dose Admin Acetaminophen 500 mg 01/31/21 05:09 02/02/21 07:47 Acetaminophen 500 Mg Tablet PO 500 mg Q6H PRN Administration Pain Rated 1-5 Al Hydrox/Mg Hydrox/Simethicone 10 ml 01/31/21 05:09 02/01/21 03:15 Mag Hydrox/Al Hydrox/Simeth 30 Ml Udc PO 10 ml Q6H PRN Administration Abdominal Discomfort Fentanyl 100 mcg 02/01/21 21:00 02/01/21 21:15 Fentanyl (*Crx) 100 Mcg Patch TRANSDERM 100 mcg Q48H LUL Administration Fluticasone Propionate 2 spray 01/31/21 09:00 02/02/21 08:57 Fluticasone Propionate 0.05% Na Spr 16 Gm Btl (*Bkc) NASAL 2 spray DAILY LUL Administration Sodium Chloride 1,000 mls @ 125 mls/hr 01/30/21 19:20 02/02/21 05:45 Normal Saline Iv IV CONT 125 mls/hr .Q8H LUL Administration Iron Sucrose 100 mg/ Sodium 55 mls @ 220 mls/hr 02/01/21 09:30 02/02/21 08:57 Chloride IVPB 02/03/21 09:31 220 mls/hr QAM LUL Administration Levothyroxine Sodium 112 mcg 01/31/21 06:30 02/02/21 07:44 Levothyroxine Sodium 112 Mcg Tablet PO 112 mcg DAILY@0630 [facility]
[2021-02-02] MEDS: POTASSIUM CHLORIDE 20 MEQ TABLET PO (15:37)
--- NOTE | 2021-02-02 15:54 | PM.IMPN ---
Progress Note: A&P Assessment and Plan (1) Intractable nausea and vomiting: Code(s): R11.2 - Nausea with vomiting, unspecified Status: Acute Assessment and Plan: Doing well today but continues to have pain and nausea -EGD tomorrow -continue PPI and Carafate -suspect she may have gastritis or gastric ulcer, especially with the iron deficiency anemia -plan for colonoscopy outpt (2) Acute dehydration: Code(s): E86.0 - Dehydration Status: Acute Assessment and Plan: Resolved (3) Epigastric abdominal pain: Code(s): R10.13 - Epigastric pain Status: Acute Assessment and Plan: As above, continue PPI (4) Opiate dependence: Code(s): F11.20 - Opioid dependence, uncomplicated Status: Acute Assessment and Plan: Chronic, continue home medications -She follows up with bulk gas specialist and has been on chronic opiates (5) Hypercalcemia: Code(s): E83.52 - Hypercalcemia Status: Acute Assessment and Plan: -likely due to dehydration but PTH is high -PTH high, vitamin D normal -parathyroid scan WNL (6) Celiac disease: Code(s): K90.0 - Celiac disease Status: Acute Assessment and Plan: Found on EGD from 2013 (7) DAVE (iron deficiency anemia): Code(s): D50.9 - Iron deficiency anemia, unspecified Status: Acute Assessment and Plan: Pt admits to heavy menstrual and could be due to fibroids -would check stool occult blood, colonoscopy outpt -pt had negative cologuard last march but has never had a colonoscopy -will do IV venofer while here. Pt is unable to take oral iron. I have recommended she f/u with her pcp for outpt iron infusions. Subjective Date/time seen: 02/02/21 15:54 Interval history: Pt is a 55-year-old female here for nausea vomiting. Pt was seen today and is still having some pain to the epigastric area. She has not had much to eat but has had some nausea. No vomiting so far today. She denies fevers, chills, leg swelling, CP, SOB, lightheadedness or dizziness. Exam Narrative: General: Well developed well nourished patient in NAD HEENT: normocephalic Neck: supple Neuro: Alert and oriented x4 CV:RRR Resp:CTA Abd: Soft, non distended. Pain to palpation to the epigastric area. Positive bowel sounds Extremities: No swelling, erythema, or pain to palpation. Objective Data Vital Signs Vital Signs: Vital Signs - 24 hr 02/01/21 22:00 02/02/21 06:00 02/02/21 14:00 Temperature 96.9 F L 98.5 F 97.7 F Pulse Rate 60 86 70 Respiratory Rate 18 18 14 Blood Pressure 125/71 139/66 129/71 Pulse Oximetry 98 97 100 Intake/Output Intake/Output: Intake & Output 01/30/21 01/31/21 02/01/21 02/02/21 23:59 23:59 23:59 23:59 Intake Total 1000 3190 4725 2200 Balance 1000 3190 4725 2200 Meds/Results Medications: Active Medications Generic Name Dose Route Start Last Admin Trade Name Freq PRN Reason Stop Dose Admin Acetaminophen 500 mg 01/31/21 05:09 02/02/21 07:47 Acetaminophen 500 Mg Tablet PO 500 mg Q6H PRN Administration Pain Rated 1-5 Al Hydrox/Mg Hydrox/Simethicone 10 ml 01/31/21 05:09 02/01/21 03:15 Mag Hydrox/Al Hydrox/Simeth 30 Ml Udc PO 10 ml Q6H PRN Administration Abdominal Discomfort Fentanyl 100 mcg 02/01/21 21:00 02/01/21 21:15 Fentanyl (*Crx) 100 Mcg Patch TRANSDERM 100 mcg Q48H LUL Administration Fluticasone Propionate 2 spray 01/31/21 09:00 02/02/21 08:57 Fluticasone Propionate 0.05% Na Spr 16 Gm Btl (*Bkc) NASAL 2 spray DAILY LUL Administration Sodium Chloride 1,000 mls @ 125 mls/hr 01/30/21 19:20 02/02/21 15:45 Normal Saline Iv IV CONT 125 mls/hr .Q8H LUL Administration Iron Sucrose 100 mg/ Sodium 55 mls @ 220 mls/hr 02/01/21 09:30 02/02/21 08:57 Chloride IVPB 02/03/21 09:31 220 mls/hr QAM LUL Administration Levothyroxine Sodium 112 mcg
[2021-02-02 21:45] VITALS: BP 118/53; PULSE 77; RESP 18; TEMP 36.3; O2SAT 99
[2021-02-03] VITALS (7 sets, daily range): BP systolic 110–154; BP diastolic 51–81; PULSE 59–81; RESP 15–26; TEMP 36.1–36.8; O2SAT 97–100
[2021-02-03] MEDS: ONDANSETRON INJ 4 MG/2 ML VIAL IV PUSH ×3 (03:53→14:16)
[2021-02-03 06:22] LABS: Hematocrit 30.2 % (37.0-47.0); Hemoglobin 9.1 g/dL (12.0-15.0); Mean Corpuscular HGB Conc 30.1 g/dl (32-36); Mean Corpuscular Hemoglobin 23.9 pg (26-34); Mean Corpuscular Volume 79.5 fl (80-100); Mean Platelet Volume 9.9 fl (7.4-10.4); Platelet Count Result 225 k/mm3 (150-375); Red Cell Distribution Width 16.6 % (11.5-14.5); White Blood Count 4.2 K/mm3 (4.5-10.0)
[2021-02-03 06:28] LABS: Anion Gap 6 mmol/L (8-16); Blood Urea Nitrogen 7 mg/dL (7-17); Carbon Dioxide 23 mmol/L (22-30); Chloride 107 mmol/L (98-107); Estimated CRCL calculation 66 ml/min; Estimated Glomerular Filt Rate > 60; Glucose 92 mg/dL (65-110); Potassium 3.7 mmol/L (3.4-5.0); Sodium 136 mmol/L (137-145)
[2021-02-03] MEDS: oxyCODONE HCL (*CRX) 5 MG TAB IR PO ×3 (06:51→21:07)
[2021-02-03] MEDS: SODIUM CHLORIDE 0.9% IV 1,000 ML 125 ML IV CONT ×2 (06:54→17:09)
[2021-02-03] MEDS: LEVOTHYROXINE SODIUM 112 MCG TABLET PO (06:55)
[2021-02-03] MEDS: SUCRALFATE SUSP 100 MG/ML 10 ML UDC 1000 MG PO ×3 (06:56→21:06)
[2021-02-03] MEDS: IRON SUCROSE COMPLEX 100 MG in SODIUM CHLORIDE 0.9% IV 50 ML 110 MG IVPB (08:20)
[2021-02-03] MEDS: PANTOPRAZOLE SODIUM IV 40 MG VIAL IV PUSH (08:25)
[2021-02-03 08:52] LABS: IFOB Positive Control Positive; Immunochemical Fecal Occult Bl Positive (N)
[2021-02-03] MEDS: LACTATED RINGERS 1,000 ML 150 ML IV CONT (12:41)
--- NOTE | 2021-02-03 13:01 | WPDANESEPPF ---
Anes - Initial Pre Proc Eval Procedure: Operation Date: 02/03/21 14:00 Proposed Procedures p Esophagogastroduodenoscopy - Gutierrez Lala MD Date/Time: 02/03/21 13:01 Surgeon: Julieta Cherry PA-C Pre Op Diagnosis: Intractable Nausea & Vomiting,Epigastric Abd Pain Patient Data Age: 55 Gender: F Height: 1.68 m Weight: 66 kg Last Vital Signs Temp 36.1 C L 02/03/21 12:39 Pulse 81 02/03/21 12:39 Resp 16 02/03/21 12:39 BP 154/81 H 02/03/21 12:39 Pulse Ox 100 02/03/21 12:39 Allergies Allergy/AdvReac Type Severity Reaction Status Date / Time levofloxacin Allergy Severe NECK Verified 01/30/21 22:45 SWELLING/ELEVATED LIVER ENZYMES pregabalin Allergy Severe BLURRED Verified 01/30/21 22:45 VISION, GARBLED SPEECH vancomycin Allergy Severe REDMANS Verified 01/30/21 22:45 SYNDROME ciprofloxacin Allergy Intermediate HIVES Verified 01/30/21 22:45 clarithromycin Allergy Mild RASH Verified 01/30/21 22:45 Corticosteroids Allergy Unknown Unknown Verified 01/30/21 22:45 (Glucocorticoids) levothyroxine sodium Allergy Unknown GENERIC Verified 01/30/21 22:45 SYNTHROID* USE BRAND NAME ONLY topiramate Allergy Unknown Unknown Verified 01/30/21 22:45 apixaban AdvReac Severe INEFFECTIVE Verified 01/30/21 22:45 warfarin AdvReac Severe HEADACHE Verified 01/30/21 22:45 ANTICHOLINERGICS Allergy Severe SHUTS DOWN Uncoded 11/04/17 06:49 SALIVARY GLANDS ANTIHISTAMINES Allergy Severe SHUTS DOWN Uncoded 11/04/17 06:49 SALIVARY GLANDS intrathecal prednisone AdvReac Severe Swelling Uncoded 04/14/16 18:50 Home Medications Medication Instructions Recorded Confirmed Type acetaminophen 500 mg PO Q6H PRN 01/30/21 01/30/21 History alum-mag hydroxide-simeth [Mylanta] 10 ml PO Q6H PRN 01/30/21 01/30/21 History fentanyl 1 patch TRANSDERMAL Q48H 01/30/21 01/30/21 History fluticasone propionate [Allergy 2 spray INTRANASAL DAILY 01/30/21 01/30/21 History Relief (fluticasone)] levothyroxine 112 mcg PO DAILY 01/30/21 01/30/21 History linaclotide [Linzess] 145 mcg PO DAILY 01/30/21 01/30/21 History ondansetron 4 mg PO Q4-6H PRN 01/30/21 01/30/21 History oxycodone 5 mg PO Q4-6H PRN 01/30/21 01/30/21 History pantoprazole 40 mg PO BID 01/30/21 01/30/21 History sennosides 8.6 mg PO BID 01/30/21 01/30/21 History simethicone 80 mg PO Q4-6H PRN 01/30/21 01/30/21 History Laboratory Tests 02/03/21 02/03/21 02/03/21 05:51 05:51 07:44 WBC 4.2 K/mm3 L K/mm3 (4.5-10.0) RBC 3.80 M/mm3 L M/mm3 (4.2-5.4) Hgb 9.1 g/dL L g/dL (12.0-15.0) Hct 30.2 % L % (37.0-47.0) MCV 79.5 fl L fl (80-100) MCH 23.9 pg L pg (26-34) MCHC 30.1 g/dl L g/dl (32-36) RDW 16.6 % H % (11.5-14.5) Plt Count 225 k/mm3 k/mm3 (150-375) MPV 9.9 fl fl (7.4-10.4) Sodium 136 mmol/L L mmol/L (137-145) Potassium 3.7 mmol/L mmol/L (3.4-5.0) Chloride 107 mmol/L mmol/L (98-107) Carbon Dioxide 23 mmol/L mmol/L (22-30) Anion Gap 6 mmol/L L mmol/L (8-16) BUN 7 mg/dL mg/dL (7-17) Creatinine 0.80 mg/dL mg/dL (0.7-1.0) Estim Creat Clear Calc 66 ml/min ml/min Estimated GFR > 60 (59 - ) Glucose 92 mg/dL mg/dL (65-110) Calcium 10.0 mg/dL mg/dL (8.4-10.2) Stl Occult Blood (IFOB) Positive H (N) Patient hx anesthesia problems: none Family hx anesthesia problems: none PMFSH Past Medical History Medical History Alternating constipation and diarrhea Chiari malformation Constipation EDS (Shanelle-Danlos syndrome) Fibroid uterus Surgical History Surgical History H/O section History of appendectomy Social History Social His
--- NOTE | 2021-02-03 16:15 | PM.DS ---
DS: Admitting Diagnosis Admitting Diagnosis Abdominal pain and intractable nausea, vomiting DS: Discharge Diagnosis Discharge Diagnosis (1) Intractable nausea and vomiting: Code(s): R11.2 - Nausea with vomiting, unspecified Status: Acute Assessment and Plan: Date of Admission 01/30/21 Date of Discharge 02/03/21 Ms. Saldaña is a 55yo F with history of Shanelle-Danlos syndrome and hypothyroidism who presented to the ED for evaluation of epigastric pain with nausea and vomiting. Is reported she was recently hospitalized at [facility] couple weeks ago where she was admitted due to constipation as the patient is known to be on chronic opioids for many years. It is reported at [facility] she was given a medication that made her have bowel movements and she described that she had had been in constant epigastric pain ever since and requested to be admitted for pain management. She was evaluated by Gastroenterology, Dr. Blakely, and underwent EGD today 02/03/21. Due to iron deficiency anemia, colonoscopy is also recommended but she describes she would have difficulty with bowel prep due to the nausea and this will be deferred to outpatient. The EGD today was unremarkable without acute evidence to explain her symptoms, multiple biopsies were taken. She was continued pantoprazole BID. She describes that her abdominal pain is improved compared to arrival. She is noted to have iron-deficiency anemia and received 3 doses of IV venofer while hospitalized. She reports she will not be able to tolerate oral iron supplementation thus we recommend she follow up with her PCP or establish with hematology for regular iron infusions. She is hemodynamically stable for discharge on 02/03/2021 with instructions to follow-up with Dr. Blakely for an outpatient colonoscopy, as well as her PCP for hospital follow-up appointment. (2) Acute dehydration: Code(s): E86.0 - Dehydration Status: Acute Assessment and Plan: Resolved (3) Epigastric abdominal pain: Code(s): R10.13 - Epigastric pain Status: Acute Assessment and Plan: As above, continue PPI. EGD unremarkable. (4) Opiate dependence: Code(s): F11.20 - Opioid dependence, uncomplicated Status: Acute Assessment and Plan: Chronic, continue home medications -She follows up with EDS specialist and has been on chronic opiates (5) Hypercalcemia: Code(s): E83.52 - Hypercalcemia Status: Acute Assessment and Plan: -resolved today. Likely due to dehydration but PTH is high -PTH high, vitamin D normal -parathyroid scan WNL (6) Celiac disease: Code(s): K90.0 - Celiac disease Status: Acute Assessment and Plan: Found on EGD from 2013 (7) DAVE (iron deficiency anemia): Code(s): D50.9 - Iron deficiency anemia, unspecified Status: Acute Assessment and Plan: Pt admits to heavy menstrual and could be due to fibroids -stool occult blood is positive but was mixed with urine that she noted had menstrual blood -pt had negative cologuard last march but has never had a colonoscopy -Had 3 doses IV venofer here. Pt is unable to take oral iron. I have recommended she f/u with her pcp for outpt iron infusions. - Follow up with Dr Blakely for outpatient colonoscopy. DS: Summary Hospital Course Hospital Course: See above. Time Spent with Patient Time attestation: Total time spent providing and/or coordinating discharge services: 35 minutes Exam Narrative: General: Well developed well nourished patient in NAD HEENT: normocephalic Neck: supple Neuro: Alert and oriented x4 CV:RRR Resp:CTA Abd: Soft, non distended. Pain to palpation to the epigastric area. Positive bowel sounds Extremities: No swelling, erythema, or pain to palpation. DS: Data Data Completed and Pending Pending studies at discharge: Pending at disch
[2021-02-03] MEDS: METOCLOPRAMIDE HCL INJ 10 MG/2 ML VIAL 5 MG IV PUSH ×2 (16:30→21:08)
[2021-02-03] MEDS: SENNOSIDES 8.6 MG TABLET PO (17:13)
--- NOTE | 2021-02-03 17:14 | PM.IMPN ---
Progress Note: A&P Assessment and Plan (1) Intractable nausea and vomiting: Code(s): R11.2 - Nausea with vomiting, unspecified Status: Acute Assessment and Plan: Doing well today but continues to have pain and nausea -EGD today shows no findings to explain her symptoms. Wonder if her EDS is causing a type of gastric emptying delay? -continue PPI and Carafate -plan for colonoscopy outpt (2) Acute dehydration: Code(s): E86.0 - Dehydration Status: Acute Assessment and Plan: Resolved (3) Epigastric abdominal pain: Code(s): R10.13 - Epigastric pain Status: Acute Assessment and Plan: As above, continue PPI. EGD unremarkable. (4) Opiate dependence: Code(s): F11.20 - Opioid dependence, uncomplicated Status: Acute Assessment and Plan: Chronic, continue home medications -She follows up with EDS specialist and has been on chronic opiates (5) Hypercalcemia: Code(s): E83.52 - Hypercalcemia Status: Acute Assessment and Plan: -resolved today. Likely due to dehydration but PTH is high -PTH high, vitamin D normal -parathyroid scan WNL (6) Celiac disease: Code(s): K90.0 - Celiac disease Status: Acute Assessment and Plan: Found on EGD from 2013 (7) DAVE (iron deficiency anemia): Code(s): D50.9 - Iron deficiency anemia, unspecified Status: Acute Assessment and Plan: Pt admits to heavy menstrual and could be due to fibroids -stool occult blood is positive but was mixed with urine that she noted had menstrual blood -pt had negative cologuard last march but has never had a colonoscopy -Had 3 doses IV venofer here. Pt is unable to take oral iron. I have recommended she f/u with her pcp for outpt iron infusions. - Follow up with Dr Blakely for outpatient colonoscopy. Subjective Date/time seen: 02/03/21 1115 Interval history: Pt is a 55-year-old female here for nausea vomiting. She is seen today prior to her EGD. She continues to have nausea today but no vomiting thus far. She notes her abdominal pain is improved but still present. Denies chest pain or shortness of breath. Planned for discharge this evening however patient does not feel discharging this evening due to persistent significant nausea. Review of Systems Review of Systems: All systems reviewed & are unremarkable except as noted in HPI and below Exam Narrative: General: Well developed well nourished patient in NAD HEENT: normocephalic Neck: supple Neuro: Alert and oriented x4 CV:RRR Resp:CTA Abd: Soft, non distended. Pain to palpation to the epigastric area. Positive bowel sounds Extremities: No swelling, erythema, or pain to palpation. Objective Data Vital Signs Vital Signs: Last Vital Signs Temp 98.3 F 02/03/21 14:15 Pulse 64 02/03/21 14:15 Resp 16 02/03/21 14:15 BP 112/58 L 02/03/21 14:15 Pulse Ox 100 02/03/21 14:15 Intake/Output Intake/Output: Intake & Output 01/31/21 02/01/21 02/02/21 02/03/21 23:59 23:59 23:59 23:59 Intake Total 3190 4725 3495 2050 Output Total 300 Balance 3190 4725 3495 1750 Meds/Results Medications: Active Medications Generic Name Dose Route Start Last Admin Trade Name Freq PRN Reason Stop Dose Admin Acetaminophen 500 mg 01/31/21 05:09 02/02/21 18:23 Acetaminophen 500 Mg Tablet PO 500 mg Q6H PRN Administration Pain Rated 1-5 Al Hydrox/Mg Hydrox/Simethicone 10 ml 01/31/21 05:09 02/01/21 03:15 Mag Hydrox/Al Hydrox/Simeth 30 Ml Udc PO 10 ml Q6H PRN Administration Abdominal Discomfort Fentanyl 100 mcg 02/01/21 21:00 02/01/21 21:15 Fentanyl (*Crx) 100 Mcg Patch TRANSDERM 100 mcg Q48H LUL Administration Fluticasone Propionate 2 spray 01/31/21 09:00 02/03/21 08:26 Fluticasone Propionate 0.05% Na Spr 16 Gm Btl (*Bkc) NASAL Not Given DAILY LUL Sodium Chloride 1,000 m
[2021-02-03] MEDS: ACETAMINOPHEN 500 MG TABLET PO (23:14)
[2021-02-04] MEDS: ONDANSETRON INJ 4 MG/2 ML VIAL IV PUSH (00:59)
[2021-02-04] MEDS: SODIUM CHLORIDE 0.9% IV 1,000 ML 125 ML IV CONT ×2 (01:03→10:16)
[2021-02-04] MEDS: oxyCODONE HCL (*CRX) 5 MG TAB IR PO ×2 (05:02→12:49)
[2021-02-04 06:00] VITALS: BP 113/53; PULSE 64; RESP 18; TEMP 36.3; O2SAT 98
[2021-02-04] MEDS: SUCRALFATE SUSP 100 MG/ML 10 ML UDC 1000 MG PO ×2 (06:19→10:21)
[2021-02-04] MEDS: METOCLOPRAMIDE HCL INJ 10 MG/2 ML VIAL 5 MG IV PUSH (06:20)
[2021-02-04] MEDS: LEVOTHYROXINE SODIUM 112 MCG TABLET PO (06:22)
[2021-02-04 06:33] LABS: Hematocrit 31.4 % (37.0-47.0); Hemoglobin 9.5 g/dL (12.0-15.0); Mean Corpuscular HGB Conc 30.3 g/dl (32-36); Mean Corpuscular Hemoglobin 23.9 pg (26-34); Mean Corpuscular Volume 78.9 fl (80-100); Mean Platelet Volume 10.5 fl (7.4-10.4); Platelet Count Result 241 k/mm3 (150-375); Red Blood Count 3.98 M/mm3 (4.2-5.4); Red Cell Distribution Width 16.5 % (11.5-14.5); White Blood Count 4.9 K/mm3 (4.5-10.0)
[2021-02-04 06:52] LABS: Anion Gap 7 mmol/L (8-16); Blood Urea Nitrogen 4 mg/dL (7-17); Calcium 9.9 mg/dL (8.4-10.2); Carbon Dioxide 25 mmol/L (22-30); Chloride 105 mmol/L (98-107); Estimated CRCL calculation 75 ml/min; Estimated Glomerular Filt Rate > 60; Glucose 90 mg/dL (65-110); Magnesium 1.4 mg/dL (1.6-2.3); Potassium 3.4 mmol/L (3.4-5.0); Sodium 137 mmol/L (137-145)
[2021-02-04] MEDS: PANTOPRAZOLE 40 MG TABLET PO (08:42)
[2021-02-04] MEDS: SENNOSIDES 8.6 MG TABLET PO (08:43)
--- NOTE | 2021-02-04 09:55 | WPDANESPN ---
Anes - Prog Note Post-Op Date/Time: 02/04/21 09:55 Cardiovascular status: normal Respiratory status: normal Airway patency: baseline Mental status: baseline Post-Op hydration status: normal Vital Signs: Last Vital Signs Temp 36.3 C L 02/04/21 06:00 Pulse 64 02/04/21 06:00 Resp 18 02/04/21 06:00 BP 113/53 L 02/04/21 06:00 Pulse Ox 98 02/04/21 06:00 Pain Score (VAS): 0/10 I/O: Intake & Output 02/03/21 02/04/21 02/04/21 23:59 07:59 15:59 Intake Total 1800 1750 Balance 1800 1750 Laboratory Tests 02/04/21 06:04 02/04/21 06:04 02/04/21 02/04/21 06:04 06:04 WBC 4.9 RBC 3.98 L Hgb 9.5 L Hct 31.4 L MCV 78.9 L MCH 23.9 L MCHC 30.3 L RDW 16.5 H Plt Count 241 MPV 10.5 H Sodium 137 Potassium 3.4 Chloride 105 Carbon Dioxide 25 Anion Gap 7 L BUN 4 L Creatinine 0.70 Estim Creat Clear Calc 75 Estimated GFR > 60 Glucose 90 Calcium 9.9 Magnesium 1.4 L Post-procedural complaints: none Patient Feedback: Patient satisfied with anesthetic care.
[2021-02-04] MEDS: ACETAMINOPHEN 500 MG TABLET PO (10:14)
[2021-02-04] MEDS: POTASSIUM CHLORIDE 20 MEQ TABLET PO (10:14)
[2021-02-04] MEDS: MAGNESIUM SULF 2 GM/WATER 50ML 2 GM/50 ML BAG IVPB (10:15)
--- NOTE | 2021-02-04 10:54 | PM.DS ---
DS: Admitting Diagnosis Admitting Diagnosis epigastric pain, n/v DS: Discharge Diagnosis Discharge Diagnosis (1) Intractable nausea and vomiting: Code(s): R11.2 - Nausea with vomiting, unspecified Status: Acute Assessment and Plan: Improved today -EGD today shows no findings to explain her symptoms. Wonder if her EDS is causing a type of gastric emptying delay? Consider gastric emptying study at discharge, spoke with patient about this -continue PPI and Carafate outpatient -plan for colonoscopy outpt (2) Acute dehydration: Code(s): E86.0 - Dehydration Status: Acute Assessment and Plan: Resolved (3) Epigastric abdominal pain: Code(s): R10.13 - Epigastric pain Status: Acute Assessment and Plan: As above, continue PPI. EGD unremarkable. (4) Opiate dependence: Code(s): F11.20 - Opioid dependence, uncomplicated Status: Acute Assessment and Plan: Chronic, continue home medications -She follows up with EDS specialist and has been on chronic opiates (5) Hypercalcemia: Code(s): E83.52 - Hypercalcemia Status: Acute Assessment and Plan: -resolved today. Likely due to dehydration but PTH is high -PTH high, vitamin D normal -parathyroid scan WNL (6) Celiac disease: Code(s): K90.0 - Celiac disease Status: Acute Assessment and Plan: Found on EGD from 2013 (7) DAVE (iron deficiency anemia): Code(s): D50.9 - Iron deficiency anemia, unspecified Status: Acute Assessment and Plan: Pt admits to heavy menstrual and could be due to fibroids -stool occult blood is positive but was mixed with urine that she noted had menstrual blood -pt had negative cologuard last march but has never had a colonoscopy -Had 3 doses IV venofer here. Pt is unable to take oral iron. I have recommended she f/u with her pcp for outpt iron infusions. - Follow up with Dr Blakely for outpatient colonoscopy. DS: Summary Hospital Course Hospital Course: DOS 02/04/21 Patient is a 55 year female with a PMH of EDS on chronic opioids with IBS who presented emergency room for nausea, vomiting and epigastric pain. Vitals in the ER were temperature 99.5?, pulse 121, respiratory rate 20, blood pressure 151/84, pulse ox 100 on room air. CBC showed anemia with a hemoglobin 11.3 and hematocrit 36.9. BMP relatively normal. UA not indicative of infection. Lactic acid normal. test normal. Abdominal ultrasound showed normal gallbladder, abdominal pelvis CT showed uterine fibroids. Patient was admitted to the hospital service and GI was consulted. She continued to have epigastric pain and did not tolerate her diet so an EGD was done which showed no abnormalities. She improved the day after her EGD and was able to tolerate a regular diet in small amounts. She was questioning if the epigastric pain was more superficial with her connective tissue/skin relating to her EDS. Of note, her calcium and PTH was elevated and she had a NM parathyroid scan which was normal. Day of discharge she was feeling better and ready to go. She is going to follow up with her EDS doctor. She was educated about the worrisome signs and symptoms to come back to the emergency room for and was discharged in stable condition. Status at Discharge Overall status at discharge: patient is progressing back to baseline Time Spent with Patient Time attestation: Total time spent providing and/or coordinating discharge services:38 min Exam Narrative: General: Well developed well nourished patient in NAD HEENT: normocephalic Neck: supple Neuro: Alert and oriented x4 CV:RRR Resp:CTA Abd: Soft, non distended. Pain to palpation to the epigastric area. Positive bowel sounds Extremities: No swelling, erythema, or pain to palpation. DS: Data Data Completed and Pending Pending studies at discharge: Pending at discharge
[2021-02-04 14:00] VITALS: BP 140/65; PULSE 75; RESP 20; TEMP 36.6; O2SAT 100
[2021-02-05 16:17] LABS: Gliadin AB, IgG 5 Units (<20); Reticulin IgA Negative (Negative); TTG IGA AB 1 U/mL (<4)
== END 2021-02-04 14:20 | disposition home health service (06) | DRG 392 ==
LOC: ANHED 14:40 → ANH3MEDSUR 20:13
PROVIDERS: Internal Medicine; Internal Medicine Gastroenterology; Nurse Practitioner; Physician Assistant; Admitting Provider Internal Medicine; Emergency Provider General Practice; PCP Internal Medicine; Visit Provider Physician Assistant
PROC: 0DJ08ZZ Inspection of Upper Intestinal Tract, Via Natural or Artificial Opening Endoscopic (ICD-10-PCS; CPT 43235; principal; 2021-02-03 14:00)
DX: R10.13 Epigastric pain (principal); F11.20 Opioid dependence, uncomplicated; Q79.60 Ehlers-Danlos syndrome, unspecified; R11.2 Nausea with vomiting, unspecified; E86.0 Dehydration; D50.0 Iron deficiency anemia secondary to blood loss (chronic); E83.52 Hypercalcemia; K90.0 Celiac disease; R19.4 Change in bowel habit; R19.8 Other specified symptoms and signs involving the digestive system and abdomen; R63.0 Anorexia; R63.4 Abnormal weight loss; E03.9 Hypothyroidism, unspecified; D25.9 Leiomyoma of uterus, unspecified; Z90.49 Acquired absence of other specified parts of digestive tract
CPT/HCPCS: 36415; 74177; 76705; 78070; 80048; 80053; 81001; 81025; 82274; 82306; 82607; 82728; 82746; 83516; 83540; 83550; 83605; 83690; 83735; 83970; 85025; 85027; 86255; 88305; 93005; 96361; 96365; 96375; 96376; 99285; A9270; A9500; C9113; G0378; J0131; J0780; J1170; J1756; J2405; J2704; J2765; J3475; J7030; J7120; Q9967

== ENCOUNTER 2021-02-10 16:21 | Outpatient (CLI) | payer MEDICARE, SELFPAY ==
--- NOTE | ~2021-02-10 | XR_ITS ---
XR abdomen/kub 1V DATE: 02/10/2021 16:45 INDICATION: Constipation TECHNIQUE: AP projection, 2 views COMPARISON: 01/30/2021 CT abdomen pelvis FINDINGS: There is a prominent amount fecal material in the ascending colon and descending colon. No bowel obstruction is evident. The psoas shadows are intact. No visceromegaly is evident. Calcification of a uterine fibroid is noted, correlating with the enlarged fibroid uterus noted on 01/30/2021 CT abdomen pelvis examination. The lung bases are clear. Heart size appears normal. Included skeletal structures are unremarkable. IMPRESSION: Prominent amount fecal material in the ascending and descending colon. No bowel obstructi on Calcified uterine fibroid Reviewed, dictated and finalized at [facility]. Reviewed, dictated and finalized at [facility]. IMPRESSION: Prominent amount fecal material in the ascending and descending col on. No bowel obstruction Calcified uterine fibroid
== END 2021-02-10 16:22 | disposition home or self-care (01) ==
LOC: ANHIMG 16:28
PROVIDERS: PCP Internal Medicine; Visit Provider Nurse Practitioner Family
DX: K59.00 Constipation, unspecified (principal); D25.9 Leiomyoma of uterus, unspecified
CPT/HCPCS: 74018

== ENCOUNTER 2021-02-13 13:55 | Outpatient (NON) | payer MEDICARE, SELFPAY ==
[2021-02-13 15:57] LABS: Basophils Percent Auto 0.2 % (0.2-1.2); Hematocrit 35.6 % (37.0-47.0); Hemoglobin 10.8 g/dL (12.0-15.0); Immature Granulocyte Absolute 0.01 K/mm3 (0.00-0.031); Immature Granulocyte Percent A 0.2 % (0-0.5); Lymphocytes Percent Auto 35.7 % (18.3-44.2); Mean Corpuscular HGB Conc 30.3 g/dl (32-36); Mean Corpuscular Hemoglobin 24.6 pg (26-34); Mean Corpuscular Volume 81.1 fl (80-100); Mean Platelet Volume 11.2 fl (7.4-10.4); Monocytes Absolute Auto 0.3 K/mm3 (0.1-0.6); Monocytes Percent Auto 6.2 % (2.6-8.5); Neutrophils Absolute Auto 2.9 K/mm3 (1.3-6.7); Neutrophils Percent Auto 57.7 % (45.5-73.1); Platelet Count Result 255 k/mm3 (150-375); Red Blood Count 4.39 M/mm3 (4.2-5.4); Red Cell Distribution Width 18.6 % (11.5-14.5)
[2021-02-13 19:49] LABS: Alanine Aminotransferase 13 U/L (4-35); Albumin Level 4.4 g/dL (3.5-5.1); Alkaline Phosphatase 57 U/L (38-126); Anion Gap 10 mmol/L (8-16); Aspartate Amino Transferase 43 U/L (14-36); Bilirubin,Total 0.6 mg/dL (0.2-1.3); Blood Urea Nitrogen 11 mg/dL (7-17); Calcium 10.6 mg/dL (8.4-10.2); Carbon Dioxide 22 mmol/L (22-30); Chloride 105 mmol/L (98-107); Estimated Glomerular Filt Rate > 60; Glucose 76 mg/dL (65-110); Sodium 137 mmol/L (137-145)
== END 2021-02-13 13:56 | disposition home or self-care (01) ==
PROVIDERS: PCP Internal Medicine; Visit Provider Nurse Practitioner Family
DX: D50.9 Iron deficiency anemia, unspecified (principal)
CPT/HCPCS: 36415; 80053; 85025

== ENCOUNTER 2021-02-13 16:46 | Emergency (ER) | payer MEDICARE, SELFPAY ==
--- NOTE | ~2021-02-13 | CT_ITS ---
EXAMINATION: CT abdomen pelvis w con DATE: 02/13/2021 22:44 INDICATION: Constipation for one week. Small bowel obstruction. TECHNIQUE: Computed tomography (CT) of the abdomen and pelvis was performed with 100 cc Omnipaque 350 intravenous contrast. Automated exposure control and iterative reconstruction technique were employe d. Exam dose: 263.79 mGy-cm total exam DLP. COMPARISON: 02/13/2021 KUB 01/30/2021 CT abdomen pelvis FINDINGS: Minimal atelectasis at the dependent left lower lobe and lingula. No consolidation at the l ney bases. Normal heart size. No pericardial or pleural effusion. The liver, gallbladder, bile ducts, pancreas, pancreatic duct, spleen, and adrenal glands and kidneys are unremarkable. Normal caliber of the abdominal aorta. No intraperitoneal or retroperitoneal or pelvic mass lesion or adenopathy or ascites. Prominent uterine enlargement lobularity and heterogeneous density consistent with multiple uterine f ibroids. 2.5 cm left ovarian cyst. Minimal free fluid in the pelvic cul-de-sac, which may be physiologic. No CT evidence of appendicitis. No bowel obstruction is detected. There is a moderately prominent amount fecal material within the colon. No bowel wall thickening or pneumatosis or intraperitoneal free air. Small fat-containing umbilical hernia. Skeletal structures are unremarkable. IMPRESSION: Multiple uterine fibroids 2.5 cm left ovarian cyst Moderate amount of fecal material in the colon; no bowel obstruction or free air Reviewed, dictated and finalized at [facility]. Reviewed, dictated and finalized at [facility]. IMPRESSION: Multiple uterine fibroids 2.5 cm left ovarian cyst Moderate amount of fecal material in the colon; no bowel obstruction or free ai r
--- NOTE | ~2021-02-13 | XR_ITS ---
XR abdomen/kub 1V DATE: 02/13/2021 17:15 INDICATION: Lower abdominal pressure. Constipation. TECHNIQUE: AP projection, 2 views COMPARISON: 02/10/2021 KUB FINDINGS: The bowel gas pattern is unremarkable without evidence of obstruction. The psoas shadows ar e intact. No visceromegaly. Calcified uterine fibroid. No other significant abnormal calcification is noted. The lung bases are clear. Heart size appears normal. Included skeletal structures are unremarkable. IMPRESSION: Calcified uterine fibroid; otherwise unremarkable examination Reviewed, dictated and finalized at [facility]. Reviewed, dictated and finalized at location [facility].
[2021-02-13 16:58] VITALS: BP 156/76; PULSE 91; RESP 16; TEMP 36.8; O2SAT 99
[2021-02-13 21:02] VITALS: BP 139/85; PULSE 86; RESP 18; TEMP 36.8; O2SAT 100
--- NOTE | 2021-02-13 21:28 | ED.GENADULT ---
HPI - General Adult General Chief complaint: Unspecified Stated complaint: constipation Time Seen by Provider: 02/13/21 21:18 History of Present Illness HPI narrative: Patient is a 55-year-old female who presents ER with abdominal distention decreased bowel sounds. Reports she has been having difficulty with constipation through the week and that her GI nurse practitioner referred her here. Was concerned patient may require admission with colonoscopy since she has had poor bowel output after having ascending and descending colon constipation earlier in the week. Patient feels she is more bloated than typical. She has some nausea but no vomiting. She did have 2 small liquid bowel meds earlier in the morning and reports no passage of gas since then. Related Data Home Medications Medication Instructions Recorded Confirmed Linzess 145 mcg PO DAILY 01/30/21 02/11/21 acetaminophen 500 mg PO Q6H PRN 01/30/21 02/11/21 alum-mag hydroxide-simeth 10 ml PO Q6H PRN 01/30/21 02/11/21 fentanyl 1 patch TRANSDERMAL Q48H 01/30/21 02/11/21 fluticasone propionate [Allergy 2 spray INTRANASAL DAILY 01/30/21 02/11/21 Relief (fluticasone)] levothyroxine 112 mcg PO DAILY 01/30/21 02/11/21 oxycodone 5 mg PO Q4-6H PRN 01/30/21 02/11/21 pantoprazole 40 mg PO BID 01/30/21 02/11/21 sennosides 8.6 mg PO BID 01/30/21 02/11/21 simethicone 80 mg PO Q4-6H PRN 01/30/21 02/11/21 ondansetron 4 mg disintegrating 8 mg PO Q4-6H PRN tablet 02/11/21 02/11/21 tablet prochlorperazine 25 mg rectal 25 mg RECTAL Q12H 02/11/21 02/11/21 suppository Allergies Allergy/AdvReac Type Severity Reaction Status Date / Time levofloxacin Allergy Severe NECK Verified 02/13/21 21:06 SWELLING/ELEVATED LIVER ENZYMES pregabalin Allergy Severe BLURRED Verified 02/13/21 21:06 VISION, GARBLED SPEECH vancomycin Allergy Severe REDMANS Verified 02/13/21 21:06 SYNDROME ciprofloxacin Allergy Intermediate HIVES Verified 02/13/21 21:06 clarithromycin Allergy Mild RASH Verified 02/13/21 21:06 Corticosteroids Allergy Unknown Unknown Verified 02/13/21 21:06 (Glucocorticoids) levothyroxine sodium Allergy Unknown GENERIC Verified 02/13/21 21:06 SYNTHROID* USE BRAND NAME ONLY topiramate Allergy Unknown Unknown Verified 02/13/21 21:06 apixaban AdvReac Severe INEFFECTIVE Verified 02/13/21 21:06 warfarin AdvReac Severe HEADACHE Verified 02/13/21 21:06 ANTICHOLINERGICS Allergy Severe SHUTS DOWN Uncoded 02/11/21 13:36 SALIVARY GLANDS ANTIHISTAMINES Allergy Severe SHUTS DOWN Uncoded 02/11/21 13:36 SALIVARY GLANDS intrathecal prednisone AdvReac Severe Swelling Uncoded 02/11/21 13:36 Review of Systems Review of Systems: All systems reviewed & are unremarkable except as noted in HPI and below Constitutional: Constitutional: Denies chills, Denies fever(s) and Reports poor appetite Cardiovascular: Cardiovascular: Denies chest pain and Denies radiating jaw, neck or arm pain Respiratory: Respiratory: Denies chest congestion, Denies cough and Denies dyspnea Gastrointestinal: Gastrointestinal: Denies abdominal pain, Reports bloating, Reports constipation, Reports GI cramping, Reports loose stools and Reports nausea PMFSH Past Medical History Medical History (Updated 02/13/21 @ 23:35 by Rick Honeycutt MD) Alternating constipation and diarrhea Chiari malformation Constipation EDS (Shanelle-Danlos syndrome) Fibroid uterus Surgical History Surgical History H/O section History of appendectomy Social History Social History Smoking status: Never smoker Alcohol intake: never Substance use: never Spiritual care concerns: No Exam Narrative: GENERAL: Well-appearing, well-nourished, and in no acute distress. HEAD: Normocephalic, atraumatic. CHEST: Clear to auscultation. No respi
[2021-02-13] MEDS: SODIUM CHLORIDE 0.9% IV 1,000 ML 999 ML IV CONT (21:55)
[2021-02-13] MEDS: ONDANSETRON INJ 4 MG/2 ML VIAL IV PUSH (21:55)
[2021-02-13 22:05] LABS: Basophils Percent Auto 0.5 % (0.2-1.2); Eosinophils Absolute Auto 0.1 K/mm3 (0-0.3); Hematocrit 38.7 % (37.0-47.0); Hemoglobin 11.7 g/dL (12.0-15.0); Immature Granulocyte Absolute 0.02 K/mm3 (0.00-0.031); Immature Granulocyte Percent A 0.3 % (0-0.5); Lymphocytes Percent Auto 43.5 % (18.3-44.2); Mean Corpuscular HGB Conc 30.2 g/dl (32-36); Mean Corpuscular Hemoglobin 24.6 pg (26-34); Mean Corpuscular Volume 81.5 fl (80-100); Mean Platelet Volume 10.3 fl (7.4-10.4); Monocytes Absolute Auto 0.4 K/mm3 (0.1-0.6); Monocytes Percent Auto 5.7 % (2.6-8.5); Neutrophils Absolute Auto 3.2 K/mm3 (1.3-6.7); Platelet Count Result 281 k/mm3 (150-375); Red Blood Count 4.75 M/mm3 (4.2-5.4); Red Cell Distribution Width 18.4 % (11.5-14.5); White Blood Count 6.7 K/mm3 (4.5-10.0)
[2021-02-13 22:24] LABS: Anion Gap 12 mmol/L (8-16); Blood Urea Nitrogen 7 mg/dL (7-17); Calcium 11.2 mg/dL (8.4-10.2); Carbon Dioxide 26 mmol/L (22-30); Chloride 99 mmol/L (98-107); Estimated CRCL calculation 66 ml/min; Estimated Glomerular Filt Rate > 60; Glucose 96 mg/dL (65-110); Potassium 3.7 mmol/L (3.4-5.0); Sodium 137 mmol/L (137-145)
[2021-02-13 23:06] VITALS: BP 133/70; PULSE 78; RESP 14; O2SAT 97
== END 2021-02-13 23:42 | disposition home or self-care (01) ==
PROVIDERS: Emergency Provider Emergency Medicine; PCP Internal Medicine
DX: K59.00 Constipation, unspecified (principal); Q79.60 Ehlers-Danlos syndrome, unspecified; Z79.899 Other long term (current) drug therapy; Z90.89 Acquired absence of other organs
CPT/HCPCS: 36415; 74018; 74177; 80048; 80053; 85025; 96361; 96374; 99284; J2405; J7030; Q9967

== ENCOUNTER 2021-03-06 12:53 | Outpatient (NON) | payer MEDICARE, SELFPAY ==
[2021-03-06 13:14] LABS: Hematocrit 38.1 % (37.0-47.0); Hemoglobin 11.7 g/dL (12.0-15.0); Mean Corpuscular HGB Conc 30.7 g/dl (32-36); Mean Corpuscular Hemoglobin 25.7 pg (26-34); Mean Corpuscular Volume 83.7 fl (80-100); Mean Platelet Volume 10.1 fl (7.4-10.4); Platelet Count Result 237 k/mm3 (150-375); Red Blood Count 4.55 M/mm3 (4.2-5.4); Red Cell Distribution Width 19.5 % (11.5-14.5); White Blood Count 4.9 K/mm3 (4.5-10.0)
[2021-03-06 13:19] LABS: Anion Gap 9 mmol/L (8-16); Blood Urea Nitrogen 12 mg/dL (7-17); Calcium 10.8 mg/dL (8.4-10.2); Carbon Dioxide 27 mmol/L (22-30); Chloride 101 mmol/L (98-107); Estimated Glomerular Filt Rate > 60; Glucose 121 mg/dL (65-110); Potassium 4.3 mmol/L (3.4-5.0); Sodium 137 mmol/L (137-145)
[2021-03-06 13:32] LABS: Parathyroid Intact 125.2 pg/mL (7.5-53.5)
== END 2021-03-06 12:54 | disposition home or self-care (01) ==
PROVIDERS: PCP Internal Medicine; Visit Provider Internal Medicine
DX: D50.9 Iron deficiency anemia, unspecified (principal); E03.9 Hypothyroidism, unspecified
CPT/HCPCS: 36415; 80048; 83970; 85025; 85027

== ENCOUNTER 2021-06-26 14:03 | Emergency (ER) | payer MEDICARE, SELFPAY ==
[2021-06-26 15:04] VITALS: BP 155/73; PULSE 94; RESP 18; TEMP 37.1; O2SAT 100
--- NOTE | 2021-06-26 15:38 | ED.URI ---
HPI - URI/Sore Throat General Chief Complaint: Upper Respiratory Infection Stated Complaint: Sore Throat Time Seen by Provider: 06/26/21 15:38 Source: patient and RN notes reviewed Mode of arrival: ambulatory Limitations: no limitations History of Present Illness HPI Narrative: Cynthia is a 55-year-old female patient has had sore throat since yesterday. She stated this morning she is having difficulty swallowing. States she has swelling on her right uvula. Has been taking Tylenol at home. MD elicited complaint: sore throat Related Data Home Medications Medication Instructions Recorded Confirmed Linzess 145 mcg PO DAILY 01/30/21 06/26/21 acetaminophen 500 mg PO Q6H PRN 01/30/21 06/26/21 fluticasone propionate [Allergy 2 spray INTRANASAL DAILY 01/30/21 06/26/21 Relief (fluticasone)] levothyroxine 112 mcg PO DAILY 01/30/21 06/26/21 pantoprazole 40 mg PO BID 01/30/21 06/26/21 dexlansoprazole [Dexilant] 60 mg PO DAILY 06/26/21 06/26/21 Allergies Allergy/AdvReac Type Severity Reaction Status Date / Time levofloxacin Allergy Severe NECK Verified 06/26/21 15:39 SWELLING/ELEVATED LIVER ENZYMES pregabalin Allergy Severe BLURRED Verified 06/26/21 15:39 VISION, GARBLED SPEECH vancomycin Allergy Severe REDMANS Verified 06/26/21 15:39 SYNDROME ciprofloxacin Allergy Intermediate HIVES Verified 06/26/21 15:39 clarithromycin Allergy Mild RASH Verified 06/26/21 15:39 Corticosteroids Allergy Unknown Unknown Verified 06/26/21 15:39 (Glucocorticoids) levothyroxine sodium Allergy Unknown GENERIC Verified 06/26/21 15:39 SYNTHROID* USE BRAND NAME ONLY topiramate Allergy Unknown Unknown Verified 06/26/21 15:39 apixaban AdvReac Severe INEFFECTIVE Verified 06/26/21 15:39 warfarin AdvReac Severe HEADACHE Verified 06/26/21 15:39 ANTICHOLINERGICS Allergy Severe SHUTS DOWN Uncoded 06/26/21 15:39 SALIVARY GLANDS ANTIHISTAMINES Allergy Severe SHUTS DOWN Uncoded 06/26/21 15:39 SALIVARY GLANDS intrathecal prednisone AdvReac Severe Swelling Uncoded 06/26/21 15:39 Review of Systems Review of Systems: CONSTITUTIONAL: Denies body aches, fever, chills, or sweats. EYES: Denies visual changes, redness, or discharge. ENT: Denies rhinorrhea, congestion, +sore throat, denies otalgia. CARDIOVASCULAR: Denies chest pain, palpitations, or edema. RESPIRATORY: Denies cough or dyspnea. GASTROINTESTINAL: Denies abdominal pain, nausea, vomiting, or diarrhea. GENITOURINARY: Denies dysuria or hematuria. SKIN: Denies rash, itching, or wounds. MUSCULOSKELETAL: Denies back pain, joint pain, or myalgia. NEUROLOGIC: Denies headache, numbness, tingling, or weakness. PSYCH: Denies depression or anxiety. All systems reviewed & are unremarkable except as noted in HPI and below PMFSH Past Medical History Medical History Alternating constipation and diarrhea Chiari malformation Constipation EDS (Shanelle-Danlos syndrome) Fibroid uterus Surgical History Surgical History H/O section History of appendectomy Social History Social History Smoking status: Never smoker Alcohol intake: never Substance use: never Spiritual care concerns: No Comments At time of signature, I have reviewed and agree with nursing past medical, surgical, social and family history unless otherwise noted. Please see nursing chart for further information. There is no relevant family history pertinent to the presenting complaint Exam Narrative: GENERAL: Well-appearing, well-nourished, and in no acute distress. HEAD: Normocephalic, atraumatic. EYES: EOMI. No redness or drainage. Conjunctivae normal. ENT: Mucous membranes pink and moist. Nares clear. No rhinorrhea. TMs normal bilaterally. Posterior pharynx is erythemic with moderate edema
== END 2021-06-26 15:50 | disposition home or self-care (01) ==
PROVIDERS: Emergency Provider Nurse Practitioner Family; PCP Internal Medicine
DX: J02.9 Acute pharyngitis, unspecified (principal)
CPT/HCPCS: 87081; 87880; 99213; G0463

== ENCOUNTER 2021-10-11 13:50 | Emergency (ER) | payer MEDICARE, SELFPAY ==
--- NOTE | 2021-10-11 13:54 | ED.URI ---
HPI - URI/Sore Throat General Chief Complaint: Upper Respiratory Infection Stated Complaint: sorethroat,cough Time Seen by Provider: 10/11/21 14:05 Source: patient Mode of arrival: ambulatory Limitations: no limitations History of Present Illness HPI Narrative: Ms. Saldaña is a 55-year-old female patient presenting to the clinic today with complaints of sore throat, nasal congestion, and cough since Tuesday. She reports that her primary care provider has already ordered her a Z-Anthony and she has finished this. Reports that she had fever and swollen lymph nodes at the time she took the antibiotics and this has improved. Reports only having low-grade temps of 99 currently. States her throat hurts as it is burning, nasal congestion, and chest tightness when she breathes?states that it feels as though she cannot take in a deep breath. No known exposure to Covid, flu, or strep. MD elicited complaint: cough, sore throat and nasal congestion Related Data Home Medications Medication Instructions Recorded Confirmed Linzess 145 mcg PO DAILY 01/30/21 10/11/21 acetaminophen 500 mg PO Q6H PRN 01/30/21 10/11/21 levothyroxine 112 mcg PO DAILY 01/30/21 10/11/21 dexlansoprazole [Dexilant] 60 mg PO DAILY 06/26/21 10/11/21 ergocalciferol (vitamin D2) 10/11/21 fentanyl 10/11/21 senna mg PO 10/11/21 Allergies Allergy/AdvReac Type Severity Reaction Status Date / Time levofloxacin Allergy Severe NECK Verified 10/11/21 14:03 SWELLING/ELEVATED LIVER ENZYMES pregabalin Allergy Severe BLURRED Verified 10/11/21 14:03 VISION, GARBLED SPEECH vancomycin Allergy Severe REDMANS Verified 10/11/21 14:03 SYNDROME ciprofloxacin Allergy Intermediate HIVES Verified 10/11/21 14:03 clarithromycin Allergy Mild RASH Verified 10/11/21 14:03 Corticosteroids Allergy Unknown Unknown Verified 10/11/21 14:03 (Glucocorticoids) levothyroxine sodium Allergy Unknown GENERIC Verified 10/11/21 14:03 SYNTHROID* USE BRAND NAME ONLY topiramate Allergy Unknown Unknown Verified 10/11/21 14:03 apixaban AdvReac Severe INEFFECTIVE Verified 10/11/21 14:03 warfarin AdvReac Severe HEADACHE Verified 10/11/21 14:03 ANTICHOLINERGICS Allergy Severe SHUTS DOWN Uncoded 10/11/21 14:03 SALIVARY GLANDS ANTIHISTAMINES Allergy Severe SHUTS DOWN Uncoded 10/11/21 14:03 SALIVARY GLANDS intrathecal prednisone AdvReac Severe Swelling Uncoded 10/11/21 14:03 Review of Systems Review of Systems: Pertinent positives per HPI. Patient denies any rash, headache, visual changes, dizziness, chest pain, palpitations, nausea, vomiting, diarrhea, constipation, abdominal pain, or any urinary issues. PMFSH Past Medical History Medical History Alternating constipation and diarrhea Chiari malformation Constipation EDS (Shanelle-Danlos syndrome) Fibroid uterus Surgical History Surgical History H/O section History of appendectomy Social History Social History Smoking status: Never smoker Alcohol intake: never Substance use: never Spiritual care concerns: No Comments At the time of my signature, I reviewed and agree with the nursing past medical, surgical, social, and family history. There is no relevant family history pertinent to the patient complaint. Exam Narrative: General: Well-developed, well nourished, in no apparent distress Head: Normocephalic, atraumatic Eyes: Pupils equally round and reactive to light bilaterally, EOM intact, sclera and conjunctive clear, no discharge, lids normal Ears: TMs intact and clear, mild bulging of TM's with mild clear fluid behind TMs, ear canals clear, no drainage, grossly hearing normal. Nose: Nares patent, clear nasal discharge, mild inflammation, no sinus tenderness. Mouth: Oral
[2021-10-11 14:00] VITALS: BP 165/66; PULSE 100; RESP 18; TEMP 37.1; O2SAT 100
[2021-10-11 14:05] VITALS: BP 165/66; PULSE 100; RESP 18; TEMP 37.1; O2SAT 100
== END 2021-10-11 14:27 | disposition home or self-care (01) ==
PROVIDERS: Emergency Provider Nurse Practitioner Family; PCP Internal Medicine
DX: H69.93 Unspecified Eustachian tube disorder, bilateral (principal); J06.9 Acute upper respiratory infection, unspecified; J02.9 Acute pharyngitis, unspecified; Q07.00 Arnold-Chiari syndrome without spina bifida or hydrocephalus; Q79.60 Ehlers-Danlos syndrome, unspecified
CPT/HCPCS: 87081; 87880; 99213; G0463

== ENCOUNTER 2022-07-01 17:05 | Emergency (ER) | payer OTHER, SELFPAY ==
[2022-07-01 17:22] VITALS: BP 155/82; PULSE 84; RESP 20; TEMP 36.4; O2SAT 99
[2022-07-01 17:26] VITALS: BP 155/82; PULSE 84; RESP 20; TEMP 36.4; O2SAT 99
--- NOTE | 2022-07-01 17:40 | ED.URI ---
HPI - URI/Sore Throat General Chief Complaint: Upper Respiratory Infection Stated Complaint: Shortness of Breath,Congestion Time Seen by Provider: 07/01/22 17:40 Source: patient, RN notes reviewed and old records reviewed Mode of arrival: ambulatory Limitations: no limitations History of Present Illness HPI Narrative: 56 year old female who presents to [facility] care with complaints of cough and congestion and sore throat since the 05 of June which had improved some then 1 week ago her throat became fire engine red and had spots on it. She states that she had virtual doctors visit that was a wasted effort. She reports that her throat remains sore and cough continues to be dry hacking and is unable to rest well. Patient reports that she took a home COVID test on the that was negative.. States chest pond with her cough, denies any fever or body aches. MD elicited complaint: cough and sore throat Onset (ago): week(s) (2) Pain scale (0-10): 4 Treatments prior to arrival: antibiotics (left over antibiotic of amoxicillin 2 days worth) Related Data Home Medications Medication Instructions Recorded Confirmed levothyroxine 112 mcg tablet 112 mcg PO DAILY 01/30/21 07/01/22 linaclotide 145 mcg capsule 145 mcg PO DAILY 01/30/21 07/01/22 (Linzess) dexlansoprazole 60 mg 60 mg PO DAILY 06/26/21 07/01/22 capsule,biphase delayed release (Dexilant) ergocalciferol (vitamin D2) 1,250 1,250 mcg PO WEEKLY 10/11/21 07/01/22 mcg (50,000 unit) capsule fentanyl 12 mcg/hr transdermal 18 mcg transdermal USEASDIRECTD 10/11/21 07/01/22 patch Allergies Allergy/AdvReac Type Severity Reaction Status Date / Time levofloxacin Allergy Severe NECK Verified 07/01/22 17:26 SWELLING/ELEVATED LIVER ENZYMES pregabalin Allergy Severe BLURRED Verified 07/01/22 17:26 VISION, GARBLED SPEECH vancomycin Allergy Severe REDMANS Verified 07/01/22 17:26 SYNDROME ciprofloxacin Allergy Intermediate HIVES Verified 07/01/22 17:26 clarithromycin Allergy Mild RASH Verified 07/01/22 17:26 Corticosteroids Allergy Unknown Unknown Verified 07/01/22 17:26 (Glucocorticoids) levothyroxine sodium Allergy Unknown GENERIC Verified 07/01/22 17:26 SYNTHROID* USE BRAND NAME ONLY topiramate Allergy Unknown Unknown Verified 07/01/22 17:26 apixaban AdvReac Severe INEFFECTIVE Verified 07/01/22 17:26 warfarin AdvReac Severe HEADACHE Verified 07/01/22 17:26 ANTICHOLINERGICS Allergy Severe SHUTS DOWN Uncoded 07/01/22 17:26 SALIVARY GLANDS ANTIHISTAMINES Allergy Severe SHUTS DOWN Uncoded 07/01/22 17:26 SALIVARY GLANDS intrathecal prednisone AdvReac Severe Swelling Uncoded 07/01/22 17:26 Review of Systems Review of Systems: CONSTITUTIONAL: Denies malaise, chills, sweats, or fever. EYES: Denies visual changes, redness, or discharge. ENT: Reports rhinorrhea, congestion, sinus pain, no otalgia positive for sore throat. CARDIOVASCULAR: Denies chest pain, palpitations, or edema. RESPIRATORY: Reports cough.? Denies dyspnea.burning in chest with cough GASTROINTESTINAL: Denies abdominal pain, nausea, vomiting, diarrhea SKIN: Denies rash or itching MUSCULOSKELETAL: Denies myalgia. NEUROLOGIC: Denies headache. All systems reviewed & are unremarkable except as noted in HPI and below PMFSH Past Medical History Medical History (Updated 07/02/22 @ 00:01 by Bertin Jenkins) Alternating constipation and diarrhea Chiari malformation Constipation EDS (Shanelle-Danlos syndrome) Fibroid uterus Surgical History Surgical History (Updated 07/01/22 @ 18:01 by Kat Galindo NP) H/O brain surgery chiari malformation decompression surgery H/O section History of appendectomy Social History Social History Smoking status: Never smoker Alcohol intake: never Substance use: never Spiritual care concerns: No C
== END 2022-07-01 18:20 | disposition home or self-care (01) ==
PROVIDERS: Emergency Provider Registered Nurse; PCP Internal Medicine
DX: J06.9 Acute upper respiratory infection, unspecified (principal); J02.9 Acute pharyngitis, unspecified; G93.5 Compression of brain; Q79.60 Ehlers-Danlos syndrome, unspecified
CPT/HCPCS: 87081; 87880; 99213; G0463

== ENCOUNTER → 2022-11-04 13:47 | Outpatient (CLI) | payer OTHER, SELFPAY ==
--- NOTE | ~2022-11-04 | XR_ITS ---
XR hip LT min 2V 11/04/2022 14:11 Indication: Left hip pain Procedure: 2 views left Comparison: No prior studies for comparison. Findings: No fracture, subluxation or dislocation. There is anatomic alignment. No soft tissue abnorm ality. No foreign bodies. There is an a Morphis calcification overlying the sacrum, possibly uterine fibroid. Impression: 1: No significant bone or joint abnormality. Reviewed, dictated and finalized at location L. Impression: 1: No significant bone or joint abnormality.
== END ==
PROVIDERS: PCP Anesthesiology Pain Medicine; Visit Provider Anesthesiology Pain Medicine
DX: Q79.60 Ehlers-Danlos syndrome, unspecified (principal)
CPT/HCPCS: 73502

== ENCOUNTER → 2023-01-27 13:31 | Outpatient (CLI) | payer OTHER, SELFPAY ==
--- NOTE | ~2023-01-27 | XR_ITS ---
EXAMINATION:XR cervical spine min 6V DATE: 01/27/2023 13:51 INDICATION: Neck pain TECHNIQUE: AP, lateral, lateral swimmers and odontoid views of the cervical spine are provided. COMPARISON: None FINDINGS: Bone alignment is normal. There is no hypermobility with flexion or extension. The odontoid process is intact. No fracture is identified. Vertebral body heights and disk spaces are normal. Pre vertebral soft tissues are normal. There is sclerosis of the T1 vertebral body. IMPRESSION: 1. Sclerosis of the T1 vertebral body which could reflect metastatic disease. Further evaluation with CT or MRI is recommended. Reviewed, dictated and finalized at location F. IMPRESSION: 1. Sclerosis of the T1 vertebral body which could reflect metastatic disease. F urther evaluation with CT or MRI is recommended.
== END ==
PROVIDERS: PCP Neurological Surgery; Visit Provider Neurological Surgery
DX: M54.2 Cervicalgia (principal); Z86.69 Personal history of other diseases of the nervous system and sense organs; G95.89 Other specified diseases of spinal cord
CPT/HCPCS: 72052

== ENCOUNTER 2023-04-25 08:37 | Emergency (ER) | payer OTHER, SELFPAY ==
--- NOTE | 2023-04-25 08:46 | ED.URI ---
HPI - URI/Sore Throat General Chief Complaint: Upper Respiratory Infection Stated Complaint: Cough,Headache,Sore Throat,Nausea Time Seen by Provider: 04/25/23 08:46 Source: patient, RN notes reviewed and old records reviewed Mode of arrival: ambulatory Limitations: no limitations History of Present Illness HPI Narrative: 57-year-old female presents to the [facility] with complaints of cough, sore throat, nausea and a headache when she coughs. Patient has multiple comorbidities please see past medical and surgical history area. Patient states that all of her symptoms started approximately 3 weeks ago. Patient states that she was sick for approximately 2 weeks got better for several days and then last night got a lot worse with the coughing, stuffy head, stuffy nose occasional rhinorrhea, sore throat and had pain when she coughs. Has taken Tylenol for her symptoms. Also states that she felt like her throat was swollen and had a ?left over prednisone 10 mg took that which reduce the inflammation of her throat. Patient denied any chest pain or shortness of back Patient states when she coughs she gets a headache. Patient denies any blurry vision or change in vision. No neurologic deficits. Walking with a normal gait. Onset (ago): week(s) (3) Related Data Home Medications Medication Instructions Recorded Confirmed levothyroxine 112 mcg tablet 112 mcg PO DAILY 01/30/21 04/25/23 linaclotide 145 mcg capsule 145 mcg PO DAILY 01/30/21 04/25/23 (Linzess) dexlansoprazole 60 mg 60 mg PO DAILY 06/26/21 04/25/23 capsule,biphase delayed release (Dexilant) ergocalciferol (vitamin D2) 1,250 1,250 mcg PO WEEKLY 10/11/21 04/25/23 mcg (50,000 unit) capsule oxycodone 5 mg tablet 5 mg PO TID 04/25/23 04/25/23 Allergies Allergy/AdvReac Type Severity Reaction Status Date / Time levofloxacin Allergy Severe NECK Verified 04/25/23 08:40 SWELLING/ELEVATED LIVER ENZYMES pregabalin Allergy Severe BLURRED Verified 04/25/23 08:40 VISION, GARBLED SPEECH vancomycin AdvReac Intermediate REDMANS Verified 04/25/23 08:40 SYNDROME apixaban AdvReac Mild INEFFECTIVE Verified 04/25/23 08:40 ciprofloxacin AdvReac Mild HIVES Verified 04/25/23 08:40 clarithromycin AdvReac Mild RASH Verified 04/25/23 08:40 Corticosteroids AdvReac Mild Rash Verified 04/25/23 08:40 (Glucocorticoids) levothyroxine sodium AdvReac Mild GENERIC Verified 04/25/23 08:40 SYNTHROID* USE BRAND NAME ONLY topiramate AdvReac Mild Other Verified 04/25/23 08:40 warfarin AdvReac Mild HEADACHE Verified 04/25/23 08:40 ANTICHOLINERGICS Allergy Severe SHUTS DOWN Uncoded 04/25/23 08:40 SALIVARY GLANDS ANTIHISTAMINES Allergy Severe SHUTS DOWN Uncoded 04/25/23 08:40 SALIVARY GLANDS Review of Systems Review of Systems: All systems reviewed & are unremarkable except as noted in HPI and below Constitutional: Constitutional: Reports as per HPI, Reports body ache(s), Reports headache(s) and Reports lethargy Eyes: Eyes: Reports no additional eye complaints ENT: Reports as per HPI Cardiovascular: Cardiovascular: Reports no additional cardiovascular complaints, Denies chest pain and Denies dyspnea Respiratory: Respiratory: Reports as per HPI, Denies chest congestion, Reports cough and Denies dyspnea Gastrointestinal: Gastrointestinal: Reports no additional gastrointestinal complaints, Denies abdominal pain, Denies nausea and Denies vomiting Musculoskeletal: Musculoskeletal: Reports no additional musculoskeletal complaints Integumentary/Breasts: Skin/Breast: Reports system reviewed and no additional complaints, except as docu Neurologic: Reports system reviewed and no additional complaints, except as documented Psychiatric: Psychiatric: Reports no additional psychiatric complaints Allergic/Immunologic: Allergic/Immunologic: Reports no additional allergic/immunologic complaints PMFSH Past Medical History Medical
[2023-04-25 08:47] VITALS: BP 154/87; PULSE 111; RESP 18; TEMP 37.4; O2SAT 97
== END 2023-04-25 09:03 | disposition home or self-care (01) ==
PROVIDERS: Emergency Provider Nurse Practitioner; PCP Family Medicine
DX: J06.9 Acute upper respiratory infection, unspecified (principal); J40 Bronchitis, not specified as acute or chronic; Q79.60 Ehlers-Danlos syndrome, unspecified
CPT/HCPCS: 99213; G0463

== ENCOUNTER 2023-04-29 19:46 | Inpatient (IN) | payer OTHER, MEDICARE, SELFPAY ==
--- NOTE | ~2023-04-29 | CT_ITS ---
EXAMINATION: CTA chest PE protocol DATE: 04/30/2023 01:31 INDICATION: Shortness of breath TECHNIQUE: Computed tomography angiography (CTA) of the chest was performed with 100 mL Omnipaque-350 intravenous contrast timed to evaluate the pulmonary arteries. Coronal maximum intensity projection 3D-reconstructions were created by the technologist. The dose-length product (DLP) was 409.48 mGy-cm. Automated exposure control and iterative reconstruction technique were employed. COMPARISON: 03/22/2016 FINDINGS: The pulmonary arteries are well-opacified. No pulmonary embolism is identified. Respiratory motion artifact slightly limits the examination. There is mild atelectasis. The lungs are free of fo merced airspace opacities. No pleural effusion or pneumothorax. No pathologically enlarged thoracic lymp h nodes are identified. The heart size is normal. IMPRESSION: 1. No pulmonary embolism or acute cardiopulmonary abnormality. Reviewed, dictated and finalized at location F.
--- NOTE | ~2023-04-29 | XR_ITS ---
EXAMINATION: XR chest 2V 04/29/2023 20:26 INDICATION: Chest palpitations and cough PROCEDURE: 2 view chest COMPARISON: Comparison to multiple prior studies sequentially, with oldest reviewed study dated 10/23. FINDINGS: The lungs are clear. The cardiomediastinal silhouette is within normal limits. There are no pleural effusions. There is no pneumothorax suspected. IMPRESSION: 1: NO ACUTE CARDIOPULMONARY DISEASE. Reviewed, dictated and finalized at location A.
--- NOTE | 2023-04-29 19:49 | ECG_ITS ---
Measurements Intervals [place] Rate: 116 P: 53 MT: 135 QRS: 9 QRSD: 78 T: 41 QT: 341 QTc: 475 Interpretive Statements SINUS TACHYCARDIA POSSIBLE LEFT ATRIAL ENLARGEMENT LOW QRS VOLTAGE IN PRECORDIAL LEADS BORDERLINE ST-T WAVE ABNORMALITY- ANT/INF LEADS ABNORMAL ECG COMPARED TO ECG 01/30/2021 14:08:07 SINUS TACHYCARDIA NOW PRESENT Electronically Signed On 04-30-2023 9:20:53 CDT by Yannick Garcia D.O.
[2023-04-29 19:53] VITALS: BP 210/98; PULSE 130; RESP 22; TEMP 36.9; O2SAT 100
[2023-04-29 21:17] LABS: Basophils Percent Auto 0.3 % (0.2-1.2); Hematocrit 40.7 % (37.0-47.0); Hemoglobin 13.3 g/dL (12.0-15.0); Immature Granulocyte Absolute 0.04 K/mm3 (0.00-0.031); Immature Granulocyte Percent A 0.6 % (0-0.5); Lymphocytes Percent Auto 43.9 % (18.3-44.2); Mean Corpuscular HGB Conc 32.7 g/dl (32-36); Mean Corpuscular Hemoglobin 28.9 pg (26-34); Mean Corpuscular Volume 88.3 fl (80-100); Mean Platelet Volume 10.2 fl (7.4-10.4); Monocytes Absolute Auto 0.5 K/mm3 (0.1-0.6); Monocytes Percent Auto 7.4 % (2.6-8.5); Neutrophils Absolute Auto 3.2 K/mm3 (1.3-6.7); Neutrophils Percent Auto 47.8 % (45.5-73.1); Platelet Count Result 235 k/mm3 (150-375); Red Blood Count 4.61 M/mm3 (4.2-5.4); Red Cell Distribution Width 14.1 % (11.5-14.5); White Blood Count 6.6 K/mm3 (4.5-10.0)
[2023-04-29 21:18] LABS: Appearance Urine Clear (Clear); Bilirubin Urine Negative (Negative); Blood Urine Negative (Negative); Color Urine Yellow (Yellow); Glucose Urine UA Negative (Negative); Ketones Urine Negative (Negative); Leukocyte Esterase Ur Negative LEU/UL (Negative); Nitrate Urine Negative (Negative); Protein Urine Negative (Negative); Specific Grav Ur 1.019 (1.001-1.035); Urobilinogen Urine 0.2 mg/dL (<2.0); pH Urine 6.5 (5.0-9.0)
[2023-04-29 21:28] LABS: Alanine Aminotransferase 62 U/L (6-35); Albumin Level 4.5 g/dL (3.5-5.1); Alkaline Phosphatase 76 U/L (38-126); Anion Gap 11 mmol/L (8-16); Aspartate Amino Transferase 61 U/L (14-36); Bilirubin,Total 0.4 mg/dL (0.2-1.3); Blood Urea Nitrogen 12 mg/dL (7-17); Calcium 10.6 mg/dL (8.4-10.2); Carbon Dioxide 21 mmol/L (22-30); Chloride 104 mmol/L (98-107); Estimated CRCL calculation 91 ml/min; Estimated Glomerular Filt Rate > 60; Glucose 102 mg/dL (65-110); Lipase 105 U/L (23-300); Sodium 136 mmol/L (137-145)
[2023-04-29 21:39] LABS: Troponin I < 0.012 ng/mL (0.000-0.034)
[2023-04-29 21:41] LABS: Add Urine Microscopic? NO
[2023-04-29 21:50] VITALS: BP 206/86; PULSE 115; RESP 20; TEMP 37.1; O2SAT 98
[2023-04-29 21:52] VITALS: PULSE 115
--- NOTE | 2023-04-29 22:13 | ED.ARRPALP ---
HPI - Arrhythmia/Palpitations General Chief Complaint: Arrhythmia/Palpitations Stated Complaint: palpations Time Seen by Provider: 04/29/23 22:05 History of Present Illness HPI narrative: Patient is a 57-year-old female with history of POTS, Shanelle-Danlos syndrome, Chiari formation here with palpitations. patient states that she began having intermittent palpitations around 10:00 a.m. this morning after using an albuterol inhaler. She notes that it feels like her heart is folding in half and she has very strong palpitations that are located on the left side of her chest. She feels as though she has occasional missed beats with her heart when she looks on her home pulse ox and feels her pulse. This is associated with some mild shortness of breath. She denies any prior PE or DVT, denies any recent long travels or leg swelling. of note she does have some nasal congestion. She was seen recently for upper respiratory infection that lasted about 2 weeks, she notes symptoms initially improved and then worsened again. She was seen and treated with doxycycline, steroids, albuterol inhaler by [facility]. No prior cardiac history. Of note patient is having significant stressors at home with multiple children are ill as well as her parents. Related Data Home Medications Medication Instructions Recorded Confirmed levothyroxine 112 mcg tablet 112 mcg PO DAILY 01/30/21 04/25/23 linaclotide 145 mcg capsule 145 mcg PO DAILY 01/30/21 04/25/23 (Linzess) dexlansoprazole 60 mg 60 mg PO DAILY 06/26/21 04/25/23 capsule,biphase delayed release (Dexilant) ergocalciferol (vitamin D2) 1,250 1,250 mcg PO WEEKLY 10/11/21 04/25/23 mcg (50,000 unit) capsule oxycodone 5 mg tablet 5 mg PO TID 04/25/23 04/25/23 Allergies Allergy/AdvReac Type Severity Reaction Status Date / Time levofloxacin Allergy Severe NECK Verified 04/29/23 19:52 SWELLING/ELEVATED LIVER ENZYMES pregabalin Allergy Severe BLURRED Verified 04/29/23 19:52 VISION, GARBLED SPEECH vancomycin AdvReac Intermediate REDMANS Verified 04/29/23 19:52 SYNDROME apixaban AdvReac Mild INEFFECTIVE Verified 04/29/23 19:52 ciprofloxacin AdvReac Mild HIVES Verified 04/29/23 19:52 clarithromycin AdvReac Mild RASH Verified 04/29/23 19:52 levothyroxine sodium AdvReac Mild GENERIC Verified 04/29/23 19:52 SYNTHROID* USE BRAND NAME ONLY topiramate AdvReac Mild Other Verified 04/29/23 19:52 warfarin AdvReac Mild HEADACHE Verified 04/29/23 19:52 ANTICHOLINERGICS Allergy Severe SHUTS DOWN Uncoded 04/25/23 08:40 SALIVARY GLANDS ANTIHISTAMINES Allergy Severe SHUTS DOWN Uncoded 04/25/23 08:40 SALIVARY GLANDS Review of Systems Review of Systems: All systems reviewed & are unremarkable except as noted in HPI and below PMFSH Past Medical History Medical History Alternating constipation and diarrhea Chiari malformation Constipation EDS (Shanelle-Danlos syndrome) Fibroid uterus Surgical History Surgical History H/O brain surgery chiari malformation decompression surgery H/O section History of appendectomy Social History Social History Social History: Cynthia is very confident filling out medical forms. In the last 12 months she has not received assistance from an organization or program. The date of her last physical exam was 01/03. She does not have an advance directive or living will. Smoking status: Never smoker Alcohol intake: never Substance use: never Substance use type: does not use Lack of Transportation: No Lack of Food: Never True Current Housing: I Have Housing Concerned About Future Housing: No Difficulty Paying Gas/Electric Bills: No Difficulty Paying for Meds: No Currently Unemployed: No Education: Bachelor's Deg
--- NOTE | 2023-04-29 22:55 | ECG_ITS ---
Measurements Intervals [place] Rate: 103 P: 52 RI: 142 QRS: 6 QRSD: 82 T: 39 QT: 325 QTc: 426 Interpretive Statements SINUS TACHYCARDIA VENTRICULAR BIGEMINY POSSIBLE LEFT ATRIAL ENLARGEMENT NONSPECIFIC ST & T-WAVE ABNORMALITY- INF/LAT LEADS BASELINE ARTIFACT- I, II, III, AVR, AVL, AVF, V1, V4-V6 ABNORMAL ECG COMPARED TO ECG 04/29/2023 20:00:44 VENTRICULAR BIGEMINY NOW PRESENT Electronically Signed On 04-30-2023 9:25:52 CDT by Yannick Garcia D.O.
[2023-04-29 23:03] LABS: INR 0.8; Prothrombin Time 11.9 Seconds (11.1-14.7)
[2023-04-29 23:04] LABS: Partial Thromboplastin Time 21.1 SECONDS (22.3-36.8)
[2023-04-29] MEDS: LORazepam (*CRX) 0.5 MG TABLET PO (23:07)
[2023-04-29 23:17] LABS: D Dimer 3.28 ug/mL (<0.48)
[2023-04-29 23:18] VITALS: BP 139/83; PULSE 98; RESP 22; O2SAT 98
[2023-04-29 23:19] LABS: Magnesium 2.1 mg/dL (1.6-2.3)
[2023-04-29 23:29] LABS: Troponin I < 0.012 ng/mL (0.000-0.034)
[2023-04-29 23:53] LABS: Influenza A QL RT-PCR Negative (Negative); Influenza B QL RT-PCR Negative (Negative); RSV RNA, RT-PCR Negative (Negative); SARS-CoV-2 RNA PCR Positive (Negative)
[2023-04-30] VITALS (13 sets, daily range): BP systolic 116–152; BP diastolic 53–98; PULSE 50–98; RESP 16–28; TEMP 36.6–37.3; O2SAT 93–100
--- NOTE | 2023-04-30 | ECHO_ITS ---
Patient Info Name: Cynthia Saldaña Age: 57 years : 1965 Gender: Female Ht: 67 in Wt: 191 lbs BSA: 2.05 m2 HR: 78 bpm BP: 123 / 85 mmHg Technical Quality: Good Exam Date: 04/30/2023 2:06 PM Exam Location: Echo Lab Exam Room: 203 Patient Status: Inpatient Admit Date: 04/30/2023 Staff Ordering Physician: Yannick Garcia DO Cord Splicer: Mackenzie Herman RDCS Attending Provider: Bjorn Ley MD Referring Physician: Jose AGUILAR; Exam Type: CA echo doppler color flow Study Info Indications - palpitations covid pos Complete two-dimensional, color flow and Doppler transthoracic echocardiogram is performed. Summary 1. Complete two-dimensional, color flow and Doppler transthoracic echocardiogram is performed. 2. Left ventricular chamber dimension is normal. 3. Left ventricular systolic function is normal, estimated at 60-65%. 4. The left ventricular diastolic function is grade I diastolic dysfunction. 5. E/e' 8 is minimally elevated. 6. There is trace tricuspid valve regurgitation. 7. No pulmonary hypertension, estimated pulmonary arterial systolic pressure is 39 mmHg. 8. There is trace pulmonic regurgitation. 9. There is trivial pericardial effusion. Left Ventricle E/e' 8 is minimally elevated. Left ventricular chamber dimension is normal. Left ventricular systolic function is normal, estimated at 60-65%. The left ventricular diastolic function is grade I diastolic dysfunction. Right Ventricle Right ventricular chamber dimension is normal. Right ventricular systolic function is normal. Left Atria Left atrial chamber dimension is normal. Right Atria Right atrial chamber dimension is normal. Aortic Valve The aortic valve is trileaflet. There is no aortic valve stenosis. There is no aortic valve regurgitation. Pulmonic Valve There is trace pulmonic regurgitation. Mitral Valve There is no mitral valve stenosis. There is no mitral valve regurgitation. Tricuspid Valve There is trace tricuspid valve regurgitation. No pulmonary hypertension, estimated pulmonary arterial systolic pressure is 39 mmHg. Pericardium/Pleural There is trivial pericardial effusion. Inferior Vena Cava Normal inferior vena cava with >50% collapse upon inspiration consistent with normal right atrial pressure, 5 mmHg. Aorta The aortic root size at the sinus of Valsalva is normal. Left Ventricular Outflow Tract Name Value Normal LVOT 2D LVOT Diameter 2.0 cm LVOT Doppler LVOT Peak Gradient 5 mmHg LVOT Mean Gradient 3 mmHg LVOT VTI 24 cm LVOT VTI/AV VTI Ratio 1.0 LVOT Stroke Volume 78 ml LVOT CO 15.8 l/min LVOT CI 7.7 l/min/m2 Pulmonic Valve Name Value Normal PV Doppler PV Peak Gradient 2 mmHg Mitral Valve
[2023-04-30 01:21] LABS: Free T4 Free Thyroxine Reflex 1.08 ng/dL (0.78-2.19)
[2023-04-30 02:25] LABS: Total Triiodothyronine (T3) 0.82 NG/ML (0.97-1.69)
[2023-04-30 03:32] LABS: Troponin I < 0.012 ng/mL (0.000-0.034)
[2023-04-30] MEDS: ACETAMINOPHEN 500 MG TABLET 1000 MG PO (04:56)
[2023-04-30] MEDS: ONDANSETRON INJ 4 MG/2 ML VIAL IV PUSH (04:56)
--- NOTE | 2023-04-30 06:28 | ADMGEN ---
0625: This patient, Cynthia Saldaña, was admitted to IMU Room 203-01. Patient/family oriented to hospital policies and general routines including ID bracelet, bed and alarms, visiting hours, pain management, procedures, bathroom and other care routines, personal items, smoking policy, room service/diet, and visiting hours. Information on how to activate the Rapid Response Team has been discussed. Patient/Family are encouraged to report perceived risks to care and to ask questions if they do not understand what they are told or what they should do.
--- NOTE | 2023-04-30 09:09 | PM.CNCAR ---
Assessment and Plan Assessment and plan (1) Palpitations: Code(s): R00.2 - Palpitations Status: Acute Assessment and Plan: Probably due to or made worse with covid infection. She has POTS, fluctuating BP, start low dose Metoprolol Tartate 25 mg BID to help with ventricular ectopies. Obtain echo. (2) Frequent PVCs: Code(s): I49.3 - Ventricular premature depolarization Status: Acute Assessment and Plan: Benign but symptomatic. Start Metoprolol. (3) COVID: Code(s): U07.1 - COVID-19 Status: Acute Assessment and Plan: Management as per hospitalist. (4) EDS (Shanelle-Danlos syndrome): Code(s): Q79.60 - Shanelle-Danlos syndrome, unspecified Status: Acute History of Present Illness History of Present Illness Consult date/time: 04/30/23 09:09 Reason For Visit: Symptomatic Bigeminy, COVID Narrative: 57 yr old woman presented to ER with palpitations. She has a history of POTS syndrome, Shanelle-Danlos syndrome. Her daughter who is 36 yr old has EDS and recent carotid dissection with thrombus. States 3 weeks ago she had URI and did a covid test at home that was negative. She went to Urgent care last week and was treated for URI with Doxycycline, albuterol, Prednisone. She only used albuterol once yesterday. Last evening felt more palpitations like hard beats associated with sob. She has been having fever/rigors, fatigue, headache, sob, cough. Covid test positive. EKG shows ventricular bigeminy. Normally she can walk minimal distance to a mile depending on the day with her joint pains. Denies chest pain, orthopnea, PND, edema, dizziness. Review of Systems Review of Systems: All systems reviewed & are unremarkable except as noted in HPI and below Constitutional: Constitutional: Reports as per HPI, Reports chills, Reports fatigue and Reports fever(s) Cardiovascular: Cardiovascular: Reports as per HPI, Denies chest pain, Reports irregular heart rhythm, Denies leg edema and Denies lightheadedness Respiratory: Respiratory: Reports as per HPI, Reports cough and Reports dyspnea Gastrointestinal: Gastrointestinal: Reports as per HPI and Denies abdominal pain Genitourinary: Genitourinary: Reports as per HPI and Denies dysuria Musculoskeletal: Musculoskeletal: Reports as per HPI and Reports arthralgias Neurologic: Reports as per HPI, Denies dizziness and Denies syncope [facility] Past Medical History Medical History Alternating constipation and diarrhea Chiari malformation Constipation EDS (Shanelle-Danlos syndrome) Fibroid uterus Surgical History Surgical History H/O brain surgery chiari malformation decompression surgery H/O section History of appendectomy Social History Social History Social History: Cynthia is very confident filling out medical forms. In the last 12 months she has not received assistance from an organization or program. The date of her last physical exam was 01/03. She does not have an advance directive or living will. Smoking status: Never smoker Alcohol intake: never Substance use: never Substance use type: does not use Lack of Transportation: No Lack of Food: Never True Current Housing: I Have Housing Concerned About Future Housing: No Difficulty Paying Gas/Electric Bills: No Difficulty Paying for Meds: No Currently Unemployed: No Education: Decline to Answer Difficulty w/ Childcare or Family Care: No Living arrangements: with family Spiritual care concerns: No Agree to blood products: Yes Meds Home Medications and Allergies Home Medications Medication Instructions Recorded Confirmed Type dexlansoprazole 60 mg 60 mg PO DAILY 06/26/21 04/30/23 History capsule,biphase delayed release (Dexilant) ergocalciferol (vitamin D2)
--- NOTE | 2023-04-30 10:10 | PM.IMPN ---
Progress Note: A&P Assessment and Plan (1) COVID: Code(s): U07.1 - COVID-19 Status: Acute Assessment and Plan: stable on room air CTA negative No indication for dexamethasone remdesivir Check D-dimer/CRP (2) Palpitations: Code(s): R00.2 - Palpitations Status: Acute Assessment and Plan: Appreciate cardiology consultation, she has POTS, fluctuating BP, start low dose Metoprolol Tartate 25 mg BID to help with ventricular ectopies. Obtain echo. (3) EDS (Shanelle-Danlos syndrome): Code(s): Q79.60 - Shanelle-Danlos syndrome, unspecified Status: Acute Assessment and Plan: stable, monitor (4) History of Chiari malformation: Code(s): Z86.69 - Personal history of other diseases of the nervous system and sense organs Status: Acute (5) DAVE (iron deficiency anemia): Code(s): D50.9 - Iron deficiency anemia, unspecified Status: Acute Assessment and Plan: hgb stable at 11.3 Plan DVT prophylaxis with SCDs GI prophylaxis not indicated Code status full code Subjective Date/time seen: 04/30/23 10:10 Interval history: 57-year-old female with history of POTS, Shanelle-Danlos syndrome, Chiari formation here with palpitations and currently being treated for COVID. No overnight events noted. No chest pain or shortness of breath. No nausea, vomiting or diarrhea. No fevers or chills. Review of Systems Review of Systems: 12 point review of systems was assessed and was negative except as noted in the HPI Exam Narrative: General: No acute distress, alert and oriented per baseline HEENT: Atraumatic, normocephalic, mucous membranes moist CV: Regular rate and rhythm, S1, S2 Lungs: Clear to auscultation bilaterally, no rales or crackles noted, no wheezes, good air entry Abdomen: Soft, nontender, nondistended Extremities: Normal to inspection Skin: No rashes noted, no lesions or wounds seen Psych: Euthymic, normal affect Objective Data Vital Signs Vital Signs: Vital Signs - 24 hr 04/29/23 19:53 04/29/23 21:50 04/29/23 21:52 Temperature 98.4 F 98.7 F Pulse Rate 130 H 115 H 115 H Respiratory Rate 22 H 20 Blood Pressure 210/98 H 206/86 H Pulse Oximetry 100 98 Oxygen Delivery Room Air 04/29/23 23:18 04/30/23 01:40 04/30/23 03:07 Temperature Pulse Rate 98 98 91 Respiratory Rate 22 H 23 H 23 H Blood Pressure 139/83 152/77 H 152/75 H Pulse Oximetry 98 98 99 Oxygen Delivery 04/30/23 05:28 04/30/23 06:38 04/30/23 08:00 Temperature 97.8 F 98.8 F Pulse Rate 76 74 50 L Respiratory Rate 17 20 28 H Blood Pressure 116/75 133/98 H 148/53 H Pulse Oximetry 98 97 100 Oxygen Delivery Meds/Results Medications: Active Medications Generic Name Dose Route Start Last Admin Trade Name Freq PRN Reason Stop Dose Admin Metoprolol Tartrate 25 mg 04/30/23 09:20 Metoprolol Tartrate 25 Mg Tablet PO Q12HR LUL Perflutren Lipid Microsphere 0 ml 04/30/23 08:22 Perflutren Lipid Microspheres 1.5 Ml Vial Diluted To 10 Ml Total Volume IV PUSH 05/03/23 08:23 ONCE PRN adequate visualization Protocol Radiology Results: ITS Impressions Chest X-Ray 04/29/23 20:27 IMPRESSION: 1: NO ACUTE CARDIOPULMONARY DISEASE. Chest CTA 04/30/23 08:10 IMPRESSION: 1. No pulmonary embolism or acute cardiopulmonary abnormality. Labs Labs: Laboratory Results - last 24 hr 04/29/23 04/29/23 04/29/23 21:08 22:51 23:06 WBC 6.6 RBC 4.61 Hgb 13.3 Hct 40.7 MCV 88.3 MCH 28.9 MCHC 32.7 RDW 14.1 Plt Count 235 MPV 10.2 Immature Gran % (Auto) 0.6 H Neut % (Auto) 47.8 Lymph % (Auto) 43.9 Patrick % (Auto) 7.4 Eos % (Auto) 0.0 Baso % (Auto) 0.3 Lymph # (Auto) 2.90 Patrick # (Auto) 0.5 Eos # (Auto) 0.0 Baso # (Auto) 0.0 Abs Immat Gran (auto) 0.04 H Absolute Neuts (auto) 3.2 Absolute Nucleated
--- NOTE | 2023-04-30 10:24 | PM.IMHP ---
H&P: [facility] History of Present Illness Date/Time: 04/30/23 10:24 Chief Complaint: palpitations Narrative: 57-year-old female with history of POTS, Shanelle-Danlos syndrome, Chiari formation here with palpitations and currently being treated for COVID. Patient states she has not felt well for the last week or 2. She felt lethargic, weak, decreased appetite and some abdominal discomfort. She also had a slight fever, headache and sore throat. She took a COVID test which was negative. She went to the ER and they gave her some steroids and diagnosed to have bronchitis. Symptoms continued to worsen. She started developing severe, intermittent palpitations that made her feel like she was going to pass out. She denies nausea, vomiting or diarrhea. In the ER, her D-dimer was elevated sedated his CTA to rule out PE, this was negative. She was found to be COVID positive. She was admitted with Cardiology consultation due to the significant PVCs/bigeminy noted on EKG and telemetry. Review of Systems Review of Systems: 12 point review of systems was assessed and was negative except as noted in the HPI [facility] Past Medical History Medical History Alternating constipation and diarrhea Chiari malformation Constipation EDS (Shanelle-Danlos syndrome) Fibroid uterus Surgical History Surgical History H/O brain surgery chiari malformation decompression surgery H/O section History of appendectomy Social History Social History Social History: Cynthia is very confident filling out medical forms. In the last 12 months she has not received assistance from an organization or program. The date of her last physical exam was 01/03. She does not have an advance directive or living will. Smoking status: Never smoker Alcohol intake: never Substance use: never Substance use type: does not use Lack of Transportation: No Lack of Food: Never True Current Housing: I Have Housing Concerned About Future Housing: No Difficulty Paying Gas/Electric Bills: No Difficulty Paying for Meds: No Currently Unemployed: No Education: Decline to Answer Difficulty w/ Childcare or Family Care: No Living arrangements: with family Spiritual care concerns: No Agree to blood products: Yes Meds Home Medications and Allergies Home Medications Medication Instructions Recorded Confirmed Type dexlansoprazole 60 mg 60 mg PO DAILY 06/26/21 04/30/23 History capsule,biphase delayed release (Dexilant) ergocalciferol (vitamin D2) 1,250 1,250 mcg PO WEEKLY 10/11/21 04/30/23 History mcg (50,000 unit) capsule oxycodone 5 mg tablet 2.5 mg PO QID PRN Pain 04/25/23 04/30/23 History acetaminophen 325 mg tablet 650 mg PO Q4H PRN Pain (Scale 04/30/23 04/30/23 History (Tylenol) Score 1-3) levothyroxine 75 mcg tablet 75 mcg PO DAILY 04/30/23 04/30/23 History linaclotide 290 mcg capsule 290 mcg PO DAILY 04/30/23 04/30/23 History (Linzess) ondansetron 8 mg disintegrating 8 mg translingual QID PRN NAUSEA 04/30/23 04/30/23 History tablet polyethylene glycol 3350 17 gram 17 g PO DAILY 04/30/23 04/30/23 History oral powder packet (Miralax) sennosides 8.6 mg capsule (senna) 8.6 mg PO HS 04/30/23 04/30/23 History Allergies Allergy/AdvReac Type Severity Reaction Status Date / Time levofloxacin Allergy Severe NECK Verified 04/29/23 19:52 SWELLING/ELEVATED LIVER ENZYMES pregabalin Allergy Severe BLURRED Verified 04/29/23 19:52 VISION, GARBLED SPEECH vancomycin AdvReac Intermediate REDMANS Verified 04/29/23 19:52 SYNDROME apixaban AdvReac Mild INEFFECTIVE Verified 04/29/23 19:52 ciprofloxacin AdvReac Mild HIVES Verified 04/29/23 19:52 clarithromycin AdvReac Mild RASH Verified 04/29/23 19:52 levothyroxine sodium AdvReac Mild G
[2023-04-30] MEDS: METOPROLOL TARTRATE 25 MG TABLET PO ×2 (10:42→20:12)
[2023-04-30] MEDS: oxyCODONE HCL (*CRX) 2.5 MG TAB IR PO ×3 (10:43→22:24)
[2023-04-30] MEDS: ONDANSETRON HCL ODT 4 MG TABLET 8 MG PO ×2 (10:46→18:48)
[2023-04-30 10:52] LABS: Basophils Percent Auto 0.4 % (0.2-1.2); Eosinophils Percent Auto 0.1 % (0-4.4); Hematocrit 39.2 % (37.0-47.0); Hemoglobin 13.1 g/dL (12.0-15.0); Immature Granulocyte Absolute 0.04 K/mm3 (0.00-0.031); Immature Granulocyte Percent A 0.6 % (0-0.5); Lymphocytes Absolute Auto 3.87 K/mm3 (0.9-3.2); Lymphocytes Percent Auto 54.4 % (18.3-44.2); Mean Corpuscular HGB Conc 33.4 g/dl (32-36); Mean Corpuscular Hemoglobin 29.5 pg (26-34); Mean Corpuscular Volume 88.3 fl (80-100); Mean Platelet Volume 10.1 fl (7.4-10.4); Monocytes Absolute Auto 0.4 K/mm3 (0.1-0.6); Monocytes Percent Auto 5.9 % (2.6-8.5); Neutrophils Absolute Auto 2.8 K/mm3 (1.3-6.7); Neutrophils Percent Auto 38.6 % (45.5-73.1); Platelet Count Result 237 k/mm3 (150-375); Red Blood Count 4.44 M/mm3 (4.2-5.4); Red Cell Distribution Width 14.3 % (11.5-14.5); White Blood Count 7.1 K/mm3 (4.5-10.0)
[2023-04-30 11:01] LABS: Alanine Aminotransferase 54 U/L (6-35); Albumin Level 4.4 g/dL (3.5-5.1); Alkaline Phosphatase 82 U/L (38-126); Anion Gap 10 mmol/L (8-16); Aspartate Amino Transferase 39 U/L (14-36); Bilirubin,Total 0.7 mg/dL (0.2-1.3); Blood Urea Nitrogen 10 mg/dL (7-17); Calcium 10.6 mg/dL (8.4-10.2); Carbon Dioxide 24 mmol/L (22-30); Chloride 104 mmol/L (98-107); Estimated CRCL calculation 70 ml/min; Estimated Glomerular Filt Rate > 60; Glucose 103 mg/dL (65-110); Potassium 3.6 mmol/L (3.4-5.0); Sodium 138 mmol/L (137-145)
[2023-04-30 11:11] LABS: D Dimer 2.46 ug/mL (<0.48)
[2023-04-30 13:13] LABS: CRP 0.8 mg/dL (<1.0)
[2023-04-30] MEDS: polyethylene glycoL 3350 17 GM POWD.PACK PO (15:18)
[2023-04-30] MEDS: SODIUM CHLORIDE 0.9% IV 1,000 ML 999 ML IV CONT (15:36)
--- NOTE | 2023-04-30 16:16 | PHAR ---
HOME MED: DEXLANSOPRAZOLE DR 60 MG; TAKE 1 CAPSULE BY MOUTH DAILY. VERIFIED BY PHARMACY.
[2023-04-30] MEDS: SENNA/DOCUSATE SODIUM TABLET 1 TAB PO (20:12)
[2023-05-01] VITALS (12 sets, daily range): BP systolic 110–154; BP diastolic 57–91; PULSE 61–89; RESP 16–20; TEMP 36.6–37.1; O2SAT 96–100
--- NOTE | 2023-05-01 01:31 | PC.NURSE ---
Daylight Savings Time For Daylight Savings Time Ending in the Fall - Clocks are moved back. For Daylight Savings Time Beginning in the Spring - Clocks are moved ahead. For [facility], the time of change occurs at 0200 hrs. Time is taken from the websphere process server developer. This entry on the patient's chart recognizes the change in time reflected during documentation. Example: 2 entries for vital signs may be charted for 0200 hrs.
[2023-05-01] MEDS: LINACLOTIDE 145 MCG CAPSULE 290 MCG PO (05:21)
[2023-05-01] MEDS: ACETAMINOPHEN 325 MG TABLET 650 MG PO (05:21)
[2023-05-01] MEDS: LEVOTHYROXINE SODIUM 75 MCG TABLET PO (05:21)
[2023-05-01 05:33] LABS: Basophils Percent Auto 0.6 % (0.2-1.2); Eosinophils Percent Auto 0.2 % (0-4.4); Hematocrit 37.8 % (37.0-47.0); Immature Granulocyte Absolute 0.04 K/mm3 (0.00-0.031); Immature Granulocyte Percent A 0.6 % (0-0.5); Lymphocytes Absolute Auto 3.99 K/mm3 (0.9-3.2); Mean Corpuscular HGB Conc 31.7 g/dl (32-36); Mean Corpuscular Hemoglobin 29.1 pg (26-34); Mean Corpuscular Volume 91.7 fl (80-100); Mean Platelet Volume 10.2 fl (7.4-10.4); Monocytes Absolute Auto 0.4 K/mm3 (0.1-0.6); Monocytes Percent Auto 5.7 % (2.6-8.5); Neutrophils Absolute Auto 1.9 K/mm3 (1.3-6.7); Neutrophils Percent Auto 29.9 % (45.5-73.1); Platelet Count Result 225 k/mm3 (150-375); Red Blood Count 4.12 M/mm3 (4.2-5.4); Red Cell Distribution Width 14.5 % (11.5-14.5); White Blood Count 6.3 K/mm3 (4.5-10.0)
[2023-05-01 05:45] LABS: Alanine Aminotransferase 40 U/L (6-35); Albumin Level 3.7 g/dL (3.5-5.1); Alkaline Phosphatase 64 U/L (38-126); Anion Gap 5 mmol/L (8-16); Aspartate Amino Transferase 30 U/L (14-36); Bilirubin,Total 0.6 mg/dL (0.2-1.3); Blood Urea Nitrogen 9 mg/dL (7-17); Calcium 9.7 mg/dL (8.4-10.2); Carbon Dioxide 26 mmol/L (22-30); Chloride 107 mmol/L (98-107); Estimated CRCL calculation 70 ml/min; Estimated Glomerular Filt Rate > 60; Glucose 87 mg/dL (65-110); Sodium 138 mmol/L (137-145)
--- NOTE | 2023-05-01 07:49 | PM.PNCARD ---
Progress Note: A&P Assessment and Plan (1) Palpitations: Code(s): R00.2 - Palpitations Status: Acute Assessment and Plan: Probably due to or made worse with covid infection. 04/30/23 Echo: EF 60-65%, grade I diastolic dysfunction (E/e' 8), trace TR/PI, trace pericardial effusion. She has POTS, fluctuating BP, started low dose Metoprolol Tartate 25 mg BID to help with ventricular ectopies and this has helped significantly. Continue Metoprolol. May d/c home from cardiology standpoint and f/u with me in 2 weeks to allow covid to clear. (2) Frequent PVCs: Code(s): I49.3 - Ventricular premature depolarization Status: Acute Assessment and Plan: Benign but symptomatic. Start Metoprolol. (3) COVID: Code(s): U07.1 - COVID-19 Status: Acute Assessment and Plan: Management as per hospitalist. (4) EDS (Shanelle-Danlos syndrome): Code(s): Q79.60 - Shanelle-Danlos syndrome, unspecified Status: Acute Subjective Date/time seen: 05/01/23 07:49 Interval history: She feels much better with only occasional symptom from PVC. No sob or chest pains. Exam Const: General: cooperative, healthy appearing and comfortable Orientation/consciousness: oriented to person, oriented to place and oriented to time Resp: Auscultation: clear to auscultation bilaterally, no crackles, no rales, no rhonchi and no wheezes Cardio: Rate: regular rate Rhythm: regular rhythm Heart sounds: no murmurs Peripheral pulses: dorsalis pedis present Neuro: General: oriented to person, oriented to place and oriented to time Extrem: Right lower extremity: no edema Left lower extremity: no edema Objective Data Vital Signs Vital Signs: Vital Signs - 24 hr 04/30/23 10:42 04/30/23 12:00 04/30/23 12:00 Temperature 97.9 F Pulse Rate 94 87 Respiratory Rate 16 Blood Pressure 123/85 Pulse Oximetry 93 Oxygen Delivery Room Air 04/30/23 10:00 04/30/23 12:00 04/30/23 16:00 Temperature Pulse Rate 87 84 78 Respiratory Rate Blood Pressure Pulse Oximetry Oxygen Delivery 04/30/23 16:00 04/30/23 20:10 04/30/23 20:12 Temperature 99.2 F 97.9 F Pulse Rate 78 71 78 Respiratory Rate 20 16 Blood Pressure 120/59 L 118/61 Pulse Oximetry 97 97 Oxygen Delivery 04/30/23 20:00 04/30/23 20:00 05/01/23 00:00 Temperature 97.8 F Pulse Rate 78 70 71 Respiratory Rate 16 16 Blood Pressure 110/57 L Pulse Oximetry 97 96 Oxygen Delivery Room Air 05/01/23 00:00 05/01/23 04:00 04/30/23 21:52 Temperature Pulse Rate 61 62 Respiratory Rate Blood Pressure Pulse Oximetry 96 Oxygen Delivery Room Air Intake/Output Intake/Output: Intake & Output 04/28/23 04/29/23 04/30/23 05/01/23 23:59 23:59 23:59 22:59 Intake Total 2190 Output Total 450 Balance 1740 Meds/Results Medications: Active Medications Generic Name Dose Route Start Last Admin Trade Name Freq PRN Reason Stop Dose Admin Acetaminophen 650 mg 04/30/23 10:15 05/01/23 05:21 Acetaminophen 325 Mg Tablet PO 650 mg Q4H PRN Administration Pain (Scale Score 1-3) Ergocalciferol 50,000 units 05/05/23 09:00 Ergocalciferol 50,000 Units Capsule PO Th@0900 [facility] Home Med 1 each 04/30/23 17:00 04/30/23 16:[address] 60 Mg Capsule PO 05/30/23 16:59 1 each DAILY@1600 [facility] Administration Levothyroxine Sodium 75 mcg 05/01/23 06:30 05/01/23 05:21 Levothyroxine Sodium 75 Mcg Tablet PO 75 mcg DAILY@0630 [facility] Administration Linaclotide 290 mcg 04/30/23 06:30 05/01/23 05:21 Linaclotide 145 Mcg Capsule PO 290 mcg DAILY@0630 [facility] Administration Metoprolol Tartrate 25 mg 04/30/23 09:20 04/30/23 20:12 Metoprolol Tartrate 25 Mg Tablet PO 25 mg Q12HR LUL Administration Ondansetron HCl 8 mg 04/30/23 10:24 04/30/23 18:48 Ondansetron Hcl Odt 4 Mg Tablet PO 8 mg QID PRN Administration Nausea Oxy
[2023-05-01] MEDS: METOPROLOL TARTRATE 25 MG TABLET PO ×2 (08:32→20:32)
--- NOTE | 2023-05-01 10:53 | PM.IMPN ---
Progress Note: A&P Assessment and Plan (1) COVID: Code(s): U07.1 - COVID-19 Status: Acute Assessment and Plan: stable on room air CTA negative No indication for dexamethasone remdesivir Check D-dimer/CRP, trend while here with COVID (2) Palpitations: Code(s): R00.2 - Palpitations Status: Acute Assessment and Plan: Appreciate cardiology consultation, she has POTS, fluctuating BP, start low dose Metoprolol Tartate 25 mg BID to help with ventricular ectopies. Obtain echo. (3) EDS (Shanelle-Danlos syndrome): Code(s): Q79.60 - Shanelle-Danlos syndrome, unspecified Status: Acute Assessment and Plan: stable, monitor (4) History of Chiari malformation: Code(s): Z86.69 - Personal history of other diseases of the nervous system and sense organs Status: Acute (5) DAVE (iron deficiency anemia): Code(s): D50.9 - Iron deficiency anemia, unspecified Status: Acute Assessment and Plan: hgb stable at 11.3 Plan DVT prophylaxis with SCDs GI prophylaxis not indicated Code status full code Subjective Date/time seen: 05/01/23 10:53 Interval history: 57-year-old female with history of POTS, Shanelle-Danlos syndrome, Chiari formation here with palpitations and currently being treated for COVID. No overnight events noted. No chest pain or shortness of breath. No nausea, vomiting or diarrhea. No fevers or chills. Review of Systems Review of Systems: 12 point review of systems was assessed and was negative except as noted in the HPI Exam Narrative: General: No acute distress, alert and oriented per baseline HEENT: Atraumatic, normocephalic, mucous membranes moist CV: Regular rate and rhythm, S1, S2 Lungs: Clear to auscultation bilaterally, no rales or crackles noted, no wheezes, good air entry Abdomen: Soft, nontender, nondistended Extremities: Normal to inspection Skin: No rashes noted, no lesions or wounds seen Psych: Euthymic, normal affect Objective Data Vital Signs Vital Signs: Vital Signs - 24 hr 04/30/23 12:00 04/30/23 12:00 04/30/23 12:00 Temperature 97.9 F Pulse Rate 87 84 Respiratory Rate 16 Blood Pressure 123/85 Pulse Oximetry 93 Oxygen Delivery Room Air 04/30/23 16:00 04/30/23 16:00 04/30/23 20:10 Temperature 99.2 F 97.9 F Pulse Rate 78 78 71 Respiratory Rate 20 16 Blood Pressure 120/59 L 118/61 Pulse Oximetry 97 97 Oxygen Delivery 04/30/23 20:12 04/30/23 20:00 04/30/23 20:00 Temperature Pulse Rate 78 78 70 Respiratory Rate 16 Blood Pressure Pulse Oximetry 97 Oxygen Delivery Room Air 05/01/23 00:00 05/01/23 00:00 05/01/23 04:00 Temperature 97.8 F Pulse Rate 71 61 62 Respiratory Rate 16 Blood Pressure 110/57 L Pulse Oximetry 96 Oxygen Delivery 04/30/23 21:52 05/01/23 08:32 05/01/23 08:00 Temperature 98.8 F Pulse Rate 80 71 Respiratory Rate 20 Blood Pressure 121/72 Pulse Oximetry 96 97 Oxygen Delivery Room Air Intake/Output Intake/Output: Intake & Output 04/28/23 04/29/23 04/30/23 05/01/23 23:59 23:59 23:59 22:59 Intake Total 2190 Output Total 450 Balance 1740 Meds/Results Medications: Active Medications Generic Name Dose Route Start Last Admin Trade Name Aroldo PRN Reason Stop Dose Admin Acetaminophen 650 mg 04/30/23 10:15 05/01/23 05:21 Acetaminophen 325 Mg Tablet PO 650 mg Q4H PRN Administration Pain (Scale Score 1-3) Ergocalciferol 50,000 units 05/05/23 09:00 Ergocalciferol 50,000 Units Capsule PO Th@0900 [facility] Home Med 1 each 04/30/23 17:00 04/30/23 16:[address] 60 Mg Capsule PO 05/30/23 16:59 1 each DAILY@1600 [facility] Administration Levothyroxine Sodium 75 mcg 05/01/23 06:30 05/01/23 05:21 Levothyroxine Sodium 75 Mcg Tablet PO 75 mcg DAILY@0630 [facility] Administration Linaclotide 290 mcg 04/30/23 06:30
--- NOTE | 2023-05-01 11:01 | PM.DS ---
DS: Admitting Diagnosis Discharge Date 05/01/23 Admitting Diagnosis palpitations DS: Discharge Diagnosis Discharge Diagnosis (1) COVID: Code(s): U07.1 - COVID-19 Status: Acute Assessment and Plan: stable on room air CTA negative No indication for dexamethasone remdesivir Check D-dimer/CRP, trend while here with COVID (2) Palpitations: Code(s): R00.2 - Palpitations Status: Acute Assessment and Plan: Appreciate cardiology consultation, she has POTS, fluctuating BP, start low dose Metoprolol Tartate 25 mg BID to help with ventricular ectopies. Obtain echo. (3) EDS (Shanelle-Danlos syndrome): Code(s): Q79.60 - Shanelle-Danlos syndrome, unspecified Status: Acute Assessment and Plan: stable, monitor (4) History of Chiari malformation: Code(s): Z86.69 - Personal history of other diseases of the nervous system and sense organs Status: Acute (5) DAVE (iron deficiency anemia): Code(s): D50.9 - Iron deficiency anemia, unspecified Status: Acute Assessment and Plan: hgb stable at 11.3 Plan DVT prophylaxis with SCDs GI prophylaxis not indicated Code status full code DS: Summary Hospital Course Hospital Course: 57-year-old female with history of POTS, Shanelle-Danlos syndrome, Chiari formation here with palpitations and currently being treated for COVID. Patient states she has not felt well for the last week or 2.? She felt lethargic, weak, decreased appetite and some abdominal discomfort.? She also had a slight fever, headache and sore throat.? She took a COVID test which was negative.? She went to the ER and they gave her some steroids and diagnosed to have bronchitis.? Symptoms continued to worsen.? She started developing severe, intermittent palpitations that made her feel like she was going to pass out.? She denies nausea, vomiting or diarrhea. In the ER, her D-dimer was elevated sedated his CTA to rule out PE, this was negative.? She was found to be COVID positive.? She was admitted with Cardiology consultation due to the significant PVCs/bigeminy noted on EKG and telemetry. Cardiology thought that the palpitations were probably due to or made worse with covid infection. 11/4/23 Echo: EF 60-65%, grade I diastolic dysfunction (E/e' 8), trace TR/PI, trace pericardial effusion. She has POTS, fluctuating BP, started low dose Metoprolol Tartate 25 mg BID to help with ventricular ectopies and this has helped significantly. Continue Metoprolol. May d/c home from cardiology standpoint and f/u with cardio in 2 weeks to allow covid to clear. All symptoms improved and patient was discharged in stable condition with close outpatient follow-up. Please see above and med rec for details. Time Spent with Patient Time attestation: Total time spent providing and/or coordinating discharge services: Exam Narrative: General: No acute distress, alert and oriented per baseline HEENT: Atraumatic, normocephalic, mucous membranes moist CV: Regular rate and rhythm, S1, S2 Lungs: Clear to auscultation bilaterally, no rales or crackles noted, no wheezes, good air entry Abdomen: Soft, nontender, nondistended Extremities: Normal to inspection Skin: No rashes noted, no lesions or wounds seen Psych: Euthymic, normal affect DS: Data Data Completed and Pending Labs on day of discharge: Labs from last 24 hours 05/01/23 04/30/23 04:35 10:45 WBC 6.3 RBC 4.12 L Hgb 12.0 Hct 37.8 MCV 91.7 MCH 29.1 MCHC 31.7 L RDW 14.5 Plt Count 225 MPV 10.2 Immature Gran % (Auto) 0.6 H Neut % (Auto) 29.9 L Lymph % (Auto) 63.0 H [place] % (Auto) 5.7 Eos % (Auto) 0.2 Baso % (Auto) 0.6 Lymph # (Auto) 3.99 H [place] # (Auto) 0.4 Eos # (Auto) 0.0 Baso # (Auto) 0.0 Abs Immat Gran (auto) 0.04 H Absolute Neuts (auto) 1.9 Absolute Nucleated RBC 0.0 Nucleated RBC % 0.0 Sodium 138 Potassium 4.0 Chloride
[2023-05-01] MEDS: polyethylene glycoL 3350 17 GM POWD.PACK PO (14:19)
[2023-05-01] MEDS: oxyCODONE HCL (*CRX) 2.5 MG TAB IR PO ×2 (14:23→21:13)
[2023-05-01] MEDS: SODIUM CHLORIDE 0.9% IV 2,000 ML 999 ML IV CONT (15:02)
--- NOTE | 2023-05-01 19:46 | PC.NURSE ---
1800 pt c/o feeling palpitations when walking in hallway - BP stable - pt anxious about being d/ishaan home- wants to discuss with MD. Dr. Singh in to see pt -discharged cancelled for today
--- NOTE | 2023-05-01 19:51 | PC.NURSE ---
1939- report called to Jagdish RASHID on [facility]- pt M/T status- pt transferred via bed accompanied by staff- belongings with pt
[2023-05-01] MEDS: SENNA/DOCUSATE SODIUM TABLET 1 TAB PO (20:32)
[2023-05-02] VITALS (9 sets, daily range): BP systolic 144–166; BP diastolic 74–89; PULSE 59–89; RESP 20; TEMP 36.3; O2SAT 98–100
[2023-05-02] MEDS: ACETAMINOPHEN 325 MG TABLET 650 MG PO ×2 (01:32→05:50)
[2023-05-02] MEDS: LINACLOTIDE 145 MCG CAPSULE 290 MCG PO (05:48)
[2023-05-02] MEDS: LEVOTHYROXINE SODIUM 75 MCG TABLET PO (05:48)
[2023-05-02 06:13] LABS: Basophils Percent Auto 0.5 % (0.2-1.2); Eosinophils Percent Auto 0.2 % (0-4.4); Hematocrit 35.6 % (37.0-47.0); Hemoglobin 11.5 g/dL (12.0-15.0); Immature Granulocyte Absolute 0.04 K/mm3 (0.00-0.031); Immature Granulocyte Percent A 0.7 % (0-0.5); Lymphocytes Absolute Auto 2.95 K/mm3 (0.9-3.2); Lymphocytes Percent Auto 50.7 % (18.3-44.2); Mean Corpuscular HGB Conc 32.3 g/dl (32-36); Mean Corpuscular Hemoglobin 29.3 pg (26-34); Mean Corpuscular Volume 90.6 fl (80-100); Monocytes Absolute Auto 0.4 K/mm3 (0.1-0.6); Monocytes Percent Auto 6.2 % (2.6-8.5); Neutrophils Absolute Auto 2.4 K/mm3 (1.3-6.7); Neutrophils Percent Auto 41.7 % (45.5-73.1); Platelet Count Result 209 k/mm3 (150-375); Red Blood Count 3.93 M/mm3 (4.2-5.4); Red Cell Distribution Width 14.2 % (11.5-14.5); White Blood Count 5.8 K/mm3 (4.5-10.0)
[2023-05-02 06:28] LABS: Alanine Aminotransferase 33 U/L (6-35); Albumin Level 3.7 g/dL (3.5-5.1); Alkaline Phosphatase 68 U/L (38-126); Anion Gap 7 mmol/L (8-16); Aspartate Amino Transferase 23 U/L (14-36); Bilirubin,Total 0.6 mg/dL (0.2-1.3); Blood Urea Nitrogen 10 mg/dL (7-17); Calcium 9.7 mg/dL (8.4-10.2); Carbon Dioxide 24 mmol/L (22-30); Chloride 107 mmol/L (98-107); Estimated CRCL calculation 82 ml/min; Estimated Glomerular Filt Rate > 60; Glucose 96 mg/dL (65-110); Potassium 3.9 mmol/L (3.4-5.0); Sodium 138 mmol/L (137-145)
[2023-05-02] MEDS: METOPROLOL TARTRATE 25 MG TABLET PO ×2 (08:22→14:10)
[2023-05-02] MEDS: oxyCODONE HCL (*CRX) 2.5 MG TAB IR PO (10:44)
[2023-05-02] MEDS: polyethylene glycoL 3350 17 GM POWD.PACK PO (11:57)
--- NOTE | 2023-05-02 12:23 | PM.DS ---
DS: Admitting Diagnosis Discharge Date 05/02/23 Admitting Diagnosis palpitations DS: Discharge Diagnosis Discharge Diagnosis (1) COVID: Code(s): U07.1 - COVID-19 Status: Acute Assessment and Plan: stable on room air CTA negative No indication for dexamethasone remdesivir Check D-dimer/CRP, trend while here with COVID (2) Palpitations: Code(s): R00.2 - Palpitations Status: Acute Assessment and Plan: Appreciate cardiology consultation, she has POTS, fluctuating BP, start low dose Metoprolol Tartate 25 mg BID to help with ventricular ectopies. Obtain echo. (3) EDS (Shanelle-Danlos syndrome): Code(s): Q79.60 - Shanelle-Danlos syndrome, unspecified Status: Acute Assessment and Plan: stable, monitor (4) History of Chiari malformation: Code(s): Z86.69 - Personal history of other diseases of the nervous system and sense organs Status: Acute (5) DAVE (iron deficiency anemia): Code(s): D50.9 - Iron deficiency anemia, unspecified Status: Acute Assessment and Plan: hgb stable at 11.3 Plan DVT prophylaxis with SCDs GI prophylaxis not indicated Code status full code DS: Summary Hospital Course Hospital Course: 57-year-old female with history of POTS, Shanelle-Danlos syndrome, Chiari formation here with palpitations and currently being treated for COVID and palpitations. Palpitations probably due to or made worse with covid infection. 04/30/23 Echo: EF 60-65%, grade I diastolic dysfunction (E/e' 8), trace TR/PI, trace pericardial effusion. She has POTS, fluctuating BP, started low dose Metoprolol Tartate 25 mg BID to help with ventricular ectopies and this has helped significantly. Continue Metoprolol, increase to TID. May d/c home from cardiology standpoint and f/u with me in 2 weeks to allow covid to clear. Please see above and med rec for details. All symptoms improved, all questions answered. Time Spent with Patient Time attestation: Total time spent providing and/or coordinating discharge services: DS: Data Data Completed and Pending Labs on day of discharge: Labs from last 24 hours 05/02/23 06:07 WBC 5.8 RBC 3.93 L Hgb 11.5 L Hct 35.6 L MCV 90.6 MCH 29.3 MCHC 32.3 RDW 14.2 Plt Count 209 MPV 10.0 Immature Gran % (Auto) 0.7 H Neut % (Auto) 41.7 L Lymph % (Auto) 50.7 H [place] % (Auto) 6.2 Eos % (Auto) 0.2 Baso % (Auto) 0.5 Lymph # (Auto) 2.95 [place] # (Auto) 0.4 Eos # (Auto) 0.0 Baso # (Auto) 0.0 Abs Immat Gran (auto) 0.04 H Absolute Neuts (auto) 2.4 Absolute Nucleated RBC 0.0 Nucleated RBC % 0.0 Sodium 138 Potassium 3.9 Chloride 107 Carbon Dioxide 24 Anion Gap 7 L BUN 10 Creatinine 0.80 Estim Creat Clear Calc 82 Estimated GFR > 60 Glucose 96 Calcium 9.7 Total Bilirubin 0.6 AST 23 ALT 33 Alkaline Phosphatase 68 Total Protein 7.0 Albumin 3.7 Discharge Plan Discharge Attending physician on discharge: Michelle Singh Consulting providers: Yannick Garcia Discharging Clinician: Michelle Singh Patient Disposition: Home, Self-Care Activity: as tolerated Diet: as tolerated Patient Instructions: Antibiotic Form, Heart Palpitations (DC), Pain Management (DC) Stand Alone Forms: General Discharge Information Follow-up/Referrals: Yannick Garcia DO [Physician] - 2 Weeks (patient was seen as an inpatient) Ike,MD Mara [Primary Care Provider] - Discharge Medications: New metoprolol tartrate 25 mg Tablet 25 mg PO Q8HR 30 Days Qty: 90 0RF Continued dexlansoprazole [Dexilant] 60 mg capsule,biphase delayed releas 60 mg PO DAILY ergocalciferol (vitamin D2) 1,250 mcg (50,000 unit) capsule 1,250 mcg PO WEEKLY oxycodone 5 mg tablet 2.5 mg PO QID PRN (Reason: Pain) polyethylene glycol 3350 [Miralax] 17 gram Powder In Packet 17 g PO DAILY Rx Instructions: at noon ondansetron 8 mg tabl
== END 2023-05-02 15:20 | disposition home or self-care (01) | DRG 178 ==
LOC: ANHED 04-30 05:01 → ANHIMU 04-30 06:27 → ANH2MED 05-01 19:59
PROVIDERS: Admitting Provider Internal Medicine; Emergency Provider Student in an Organized Health Care Education/Training Program; PCP Family Medicine; Visit Provider Student in an Organized Health Care Education/Training Program
DX: U07.1 COVID-19 (principal); Q79.60 Ehlers-Danlos syndrome, unspecified; G90.A Postural orthostatic tachycardia syndrome [POTS]; I49.3 Ventricular premature depolarization; D50.9 Iron deficiency anemia, unspecified
CPT/HCPCS: 36415; 71046; 71275; 80053; 81003; 83690; 83735; 84439; 84443; 84480; 84484; 85025; 85380; 85610; 85730; 86140; 87637; 93005; 93306; 96374; 99285; A9270; G0378; J2405; J7030; Q9967

== ENCOUNTER 2023-07-31 11:41 | Emergency (ER) | payer OTHER, SELFPAY ==
--- NOTE | ~2023-07-31 | CT_ITS ---
EXAMINATION: CTA chest PE protocol DATE: 07/31/2023 15:43 INDICATION: sob,elevated d-dimer, palpitations TECHNIQUE: Computed tomography angiography (CTA) of the chest was performed with 100 mL Omnipaque-350 intravenous contrast timed to evaluate the pulmonary arteries. Coronal maximum intensity projection 3D-reconstructions were created by the technologist. The dose-length product (DLP) was 474.45 mGy-cm. Automated exposure control and iterative reconstruction technique were employed. COMPARISON: 04/30/2023; x-ray chest 07/31/2023. FINDINGS: Lung parenchyma and airways: Dependent atelectasis. Clear airways. Pleura: Unremarkable. Thoracic inlet, axillae and chest wall: Unremarkable. Thoracic aorta: Normal. Mediastinum: Normal. Heart and pericardium: Normal. Coronary artery calcifications: Absent. Upper abdomen: Splenorenal varix. Bones: No acute osseous finding. Pulmonary arteries: Study quality: Adequate. No pulmonary emboli detected. IMPRESSION: No CT evidence of acute pulmonary embolus. Splenorenal varix, as can be seen with cirrhosis/portal hypertension Reviewed, dictated and finalized at location K. [employer]
--- NOTE | ~2023-07-31 | XR_ITS ---
EXAMINATION: XR chest 2V DATE: 07/31/2023 12:16 INDICATION: Heart palpitations TECHNIQUE: PA and lateral views of the chest are obtained. COMPARISON: 04/29/2023 FINDINGS: The lungs are free of acute opacities. No pleural effusion or pneumothorax. The cardiomedia stinal silhouette is normal. There is mild thoracic spondylosis. IMPRESSION: 1. No acute cardiopulmonary abnormality. Reviewed, dictated and finalized at location A. OLOGIST
[2023-07-31 11:45] VITALS: PULSE 115; RESP 18; O2SAT 100
--- NOTE | 2023-07-31 11:48 | ECG_ITS ---
Measurements Intervals [place] Rate: 114 P: 57 VA: 171 QRS: 21 QRSD: 94 T: 29 QT: 326 QTc: 449 Interpretive Statements SINUS TACHYCARDIA NONSPECIFIC ST & T-WAVE ABNORMALITY ABNORMAL RHYTHM ECG COMPARED TO ECG 04/29/2023 23:04:22 PVCS ARE NO LONGER SEEN, Electronically Signed On 08-01-2023 7:25:03 COLLEGE ADMINISTRATOR by Frank Beckman M.D.
[2023-07-31] MEDS: ASPIRIN 81 MG CHEWABLE TABLET 324 MG PO (12:02)
[2023-07-31 12:07] LABS: Basophils Percent Auto 0.4 % (0.2-1.2); Hemoglobin 13.4 g/dL (12.0-15.0); Immature Granulocyte Absolute 0.02 K/mm3 (0.00-0.031); Immature Granulocyte Percent A 0.3 % (0-0.5); Lymphocytes Absolute Auto 2.21 K/mm3 (0.9-3.2); Lymphocytes Percent Auto 32.4 % (18.3-44.2); Mean Corpuscular HGB Conc 31.9 g/dl (32-36); Mean Corpuscular Hemoglobin 28.3 pg (26-34); Mean Corpuscular Volume 88.8 fl (80-100); Mean Platelet Volume 10.3 fl (7.4-10.4); Monocytes Absolute Auto 0.4 K/mm3 (0.1-0.6); Monocytes Percent Auto 5.7 % (2.6-8.5); Neutrophils Absolute Auto 4.2 K/mm3 (1.3-6.7); Neutrophils Percent Auto 61.2 % (45.5-73.1); Platelet Count Result 243 k/mm3 (150-375); Red Blood Count 4.73 M/mm3 (4.2-5.4); Red Cell Distribution Width 13.6 % (11.5-14.5); White Blood Count 6.8 K/mm3 (4.5-10.0)
--- NOTE | 2023-07-31 12:11 | ED.ARRPALP ---
HPI - Arrhythmia/Palpitations General Chief Complaint: Arrhythmia/Palpitations <Blake Bangura APRN - Last Filed: 07/31/23 17:58> Stated Complaint: palpitations <Blake Bangura APRN - Last Filed: 07/31/23 17:58> Time Seen by Provider: 07/31/23 11:45 <Blake Bangura APRN - Last Filed: 07/31/23 17:58> Source: patient <Blake Bangura APRN - Last Filed: 07/31/23 17:58> Mode of arrival: ambulatory <Blake Bangura APRN - Last Filed: 07/31/23 17:58> Limitations: no limitations <Blake Bangura APRN - Last Filed: 07/31/23 17:58> History of Present Illness HPI narrative: Cynthia is a 57-year-old female patient presenting to the clinic today with complaints of patient's that began this morning. She reports that she was feeling as though her heart was skipping beats and feeding out of her chest. Does have history of POTS syndrome, bigeminy and EDS. Blood pressure is also elevated in the ER with history of hypertension as well. States she has taken her metoprolol this morning prior to coming to the ER. States the palpitations are intermittent in with some chest discomfort and shortness of breath. <Blake Bangura APRN - Last Filed: 07/31/23 17:58> Related Data Home Medications: Home Medications Medication Instructions Recorded Confirmed dexlansoprazole 60 mg 60 mg PO DAILY 06/26/21 07/14/23 capsule,biphase delayed release (Dexilant) ergocalciferol (vitamin D2) 1,250 1,250 mcg PO WEEKLY 10/11/21 07/14/23 mcg (50,000 unit) capsule acetaminophen 325 mg tablet 650 mg PO Q4H PRN Pain (Scale 04/30/23 07/14/23 (Tylenol) Score 1-3) levothyroxine 75 mcg tablet 75 mcg PO DAILY 04/30/23 07/14/23 linaclotide 290 mcg capsule 290 mcg PO DAILY 04/30/23 07/14/23 (Linzess) ondansetron 8 mg disintegrating 8 mg translingual QID PRN NAUSEA 04/30/23 07/14/23 tablet polyethylene glycol 3350 17 gram 17 g PO DAILY 04/30/23 07/14/23 oral powder packet (Miralax) sennosides 8.6 mg capsule (senna) 8.6 mg PO HS 04/30/23 07/14/23 oxycodone 5 mg tablet 5 mg PO Q6H PRN 07/14/23 07/14/23 <Blake Bangura, SURGEON CHIEF - Last Filed: 07/31/23 17:58> Allergies/Adverse Reactions: Allergies Allergy/AdvReac Type Severity Reaction Status Date / Time levofloxacin Allergy Severe NECK Verified 07/31/23 11:42 SWELLING/ELEVATED LIVER ENZYMES pregabalin Allergy Severe BLURRED Verified 07/31/23 11:42 VISION, GARBLED SPEECH vancomycin AdvReac Intermediate REDMANS Verified 07/31/23 11:42 SYNDROME apixaban AdvReac Mild INEFFECTIVE Verified 07/31/23 11:42 ciprofloxacin AdvReac Mild HIVES Verified 07/31/23 11:42 clarithromycin AdvReac Mild RASH Verified 07/31/23 11:42 warfarin AdvReac Mild HEADACHE Verified 07/31/23 11:42 ANTICHOLINERGICS Allergy Severe SHUTS DOWN Uncoded 07/31/23 11:42 SALIVARY GLANDS ANTIHISTAMINES Allergy Severe SHUTS DOWN Uncoded 07/31/23 11:42 SALIVARY GLANDS <Blake Bangura APRN - Last Filed: 07/31/23 17:58> Review of Systems Review of Systems: Pertinent positives per HPI. Patient denies any fever, chills, rash, visual changes, dizziness, cough, runny nose, sore throat, nausea, vomiting, diarrhea, constipation, abdominal pain, or any urinary issues. <Blake Bangura APRN - Last Filed: 07/31/23 17:58> [facility] Past Medical History Medical History: Medical History Alternating constipation and diarrhea Chiari malformation Constipation EDS (Shanelle-Danlos syndrome) Fibroid uterus <Blake Bangura APRN - Last Filed: 07/31/23 17:58> Surgical History Surgical History: Surgical History H/O brain surgery chiari malformation decompression surgery H/O section History of appendectomy <Blake Bangura, SURGEON CHIEF - Last Filed: 07/31/23 17:58> Social History Social H
[2023-07-31 12:21] LABS: Alanine Aminotransferase 27 U/L (6-35); Alkaline Phosphatase 102 U/L (38-126); Anion Gap 11 mmol/L (8-16); Aspartate Amino Transferase 31 U/L (14-36); Bilirubin,Total 0.6 mg/dL (0.2-1.3); Blood Urea Nitrogen 9 mg/dL (7-17); Calcium 11.3 mg/dL (8.4-10.2); Carbon Dioxide 23 mmol/L (22-30); Chloride 104 mmol/L (98-107); Estimated CRCL calculation 80 ml/min; Estimated Glomerular Filt Rate > 60; Glucose 121 mg/dL (65-110); Lipase 129 U/L (23-300); Potassium 3.8 mmol/L (3.4-5.0); Sodium 138 mmol/L (137-145)
[2023-07-31 12:22] LABS: Partial Thromboplastin Time 29.2 SECONDS (22.3-36.8)
[2023-07-31 12:32] LABS: Troponin I < 0.012 ng/mL (0.000-0.034)
[2023-07-31 12:35] LABS: NT Pro B Type Natriuretic Pept < 20 pg/mL (19.9-100)
[2023-07-31 12:47] LABS: D Dimer 4.38 ug/mL (<0.48)
[2023-07-31 12:53] VITALS: BP 164/103; PULSE 100; RESP 18; O2SAT 99
[2023-07-31 14:57] VITALS: BP 158/80; PULSE 125; RESP 20; O2SAT 99
--- NOTE | 2023-07-31 15:07 | ECG_ITS ---
Measurements Intervals [place] Rate: 122 P: 46 GA: 160 QRS: 6 QRSD: 79 T: 5 QT: 338 QTc: 482 Interpretive Statements SINUS TACHYCARDIA NONSPECIFIC ST & T-WAVE ABNORMALITY ABNORMAL RHYTHM ECG COMPARED TO ECG 07/31/2023 11:50:33 NO SIGNIFICANT CHANGES Electronically Signed On 08-01-2023 16:40:18 [employer] by Frank Beckman M.D.
[2023-07-31 15:21] LABS: Troponin I < 0.012 ng/mL (0.000-0.034)
[2023-07-31 16:02] VITALS: BP 144/85; PULSE 104; RESP 15; O2SAT 97
[2023-07-31 17:11] VITALS: BP 149/98; PULSE 109; RESP 20; O2SAT 97
[2023-07-31 17:58] VITALS: BP 138/85; PULSE 104; RESP 18; TEMP 37.1; O2SAT 98
== END 2023-07-31 17:59 | disposition home or self-care (01) ==
PROVIDERS: Emergency Provider Nurse Practitioner Family; PCP Family Medicine
DX: R00.2 Palpitations (principal); G90.A Postural orthostatic tachycardia syndrome [POTS]; I10 Essential (primary) hypertension; Z79.899 Other long term (current) drug therapy
CPT/HCPCS: 36415; 71046; 71275; 80053; 83690; 83880; 84484; 85025; 85380; 85610; 85730; 93005; 99284; A9270; Q9967

== ENCOUNTER 2024-04-26 10:54 | Outpatient (CLI) | payer OTHER, SELFPAY ==
--- NOTE | ~2024-04-26 | MR_ITS ---
MRI of the right ankle Clinical history: Sprain Technique: Coronal proton-density and proton-density fat-sat images, axial proton-density and proton- density fat-sat images, and sagittal proton-density and proton-density fat-sat images were acquired. Findings: Syndesmotic ligaments are intact. There is marked thickening and increased signal of the an terior talofibular, compatible with severe sprain. Posterior talofibular ligament is intact. Calcaneo fibular ligament are intact. Deltoid ligament is intact. Medial flexor tendons, peroneal tendons, anterior extensor tendons, and Achilles tendon are intact. P ossible minimal tenosynovitis of the distal tibialis posterior tendon. There is no osteochondral lesion of the talar dome. There is degenerative change of the third and fou rth tarsometatarsal joints. Remaining joint spaces appear relatively well-preserved. No significant j oint effusion. Plantar fascia intact with very small plantar calcaneal spur present. No soft tissue m ass or fluid collection evident. Impression: Severe sprain of the anterior talofibular ligament. 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 Reviewed, dictated and finalized at location M. Impression: Severe sprain of the anterior talofibular ligament. 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
== END 2024-04-26 10:55 | disposition home or self-care (01) ==
LOC: MICIMG 10:55
PROVIDERS: PCP Podiatrist Foot & Ankle Surgery; Visit Provider Podiatrist Foot & Ankle Surgery
DX: S93.491A Sprain of other ligament of right ankle, initial encounter (principal); X58.XXXA Exposure to other specified factors, initial encounter; M19.071 Primary osteoarthritis, right ankle and foot
CPT/HCPCS: 73721